=== PATIENT | female | born 1965 | race Caucasian/White ===

== ENCOUNTER 2022-01-30 05:36 | Emergency (ER) | payer OTHER, SELFPAY ==
--- OUTSIDE RECORDS SUMMARY | 2022-01-30 05:42 | XMS REPORT | Continuity of Care Document ---
:1965 Author Organization [facility] t Address [address] [place] [address] Care Team Providers Name Role Phone Andrea ANAND, Lydia Dey Primary Care Physician [phone] DELIA ANDREW Attending Clinician Unavailable Andrea ANAND, Lydia Dey Attending Clinician Daksha Cantu MA Attending Clinician Unavailable Mishel ANAND, Anabella Tran Attending Clinician Margaret Dee MA Attending Clinician Unavailable GIL IZAGUIRRE Attending Clinician Unavailable Jim Buckner MD Attending Clinician Paula Worrell RN Attending Clinician Unavailable Kolby Steward MD Attending Clinician [phone] EDWARD NAVARRO Attending Clinician Unavailable MARLON ROBERT Admitting Clinician Unavailable Payers Payer Name Policy Type Policy Number Effective Date Expiration Date Julien [facility] POS [id number] 2010 00:00:00 OPEN ACCESS Problems Condition Condition Condition Status Onset Resolution Last Treating Co mments Source Name Details Category Date Date Treatment Clinician Date COVID-19 COVID-19 Disease Active 2020-02 Metho di 0 00:00: Hospita 00 l Otalgia Otalgia Disease Active [facility] 2 st 00:00: [facility]ospita 00 l Acute Acute Disease Active [facility] bronchitis bronchitis 03-22 00:00: Hospita 00 l Acute Acute Disease Active Methodi ethmoidal ethmoidal 2-02 st sinusitis sinusitis 00:00: Hosp guy 00 l Conjunctiv Conjunctiv Disease Active M ethodi itis itis 03-22 st 00:00: Hospita 00 l Benign Benign Disease Active [facility] essential essential 03-22 HTN HTN 00:00: Hospita 00 l Cerebrovas Cerebrovas Disease Active M ethodi cular cular 03-22 st disease disease 00:00: Hospita 00 l Constipati Constipati Disease Active M ethodi on on 03-22 st 00:00: Hospita 00 l Cramps of Cramps of Disease Active Met hodi lower lower 03-22 extremity extremity 00:00: Hosp guy 00 l Diverticul Diverticul Disease Active M ethodi itis of itis of 03-22 colon colon 00:00: Hospita 00 l Dizziness Dizziness Disease Active Met hodi 03-22 st 00:00: Hospita 00 l Eczema Eczema Disease Active Methodi 03-22 00:00: Hospita 00 l Gastroesop Gastroesop Disease Active M ethodi hageal hageal 03-22 reflux reflux 00:00: Hospita disease disease 00 l Herpes Herpes Disease Active Method[facility] labialis labialis 03-22 00:00: Hospita 00 l Impaired Impaired Disease Active Metho di fasting fasting 03-22 glucose glucose 00:00: Hospita 00 l Lower Lower Disease Active Methodi abdominal abdominal 03-22 pain pain 00:00: Hospita 00 l Nausea Nausea Disease Active Methodi 03-22 00:00: Hospita 00 l Adiposity Adiposity Disease Active Met hodi 03-22 00:00: Hospita 00 l Otalgia Otalgia Disease Active Methodi 03-22 00:00: Hospita 00 l Pleurisy Pleurisy Disease Active Metho di 03-22 st 00:00: Hospita 00 l Pneumonia Pneumonia Disease Active Met hodi 03-22 st 00:00: Hospita 00 l 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 Right Breast. Scalp Scalp Disease Active Methodi psoriasis psoriasis 03-22 st 00:00: Hospita 00 l Calculus Calculus Disease Active Metho di of kidney of kidney 09-01 st 00:00: Hospita 00 l Atopic Atopic Disease Active [facility] rhinitis rhinitis 06-12 st 00:00: Hospita 00 l Menopausal Menopausal Disease Active M ethodi and and 04-16 perimenopa perimenopa 00:00: Ho spita usal usal 00 l disorder disorder Disorder Disorder Disease Active Metho di involving involving 04-16 st thrombocyt thrombocyt 00:00: Ho spita openia openia 00 l Malignant Malignant Disease Active Overview: Methodi neoplasm neoplasm 04-[address] metastatic metastatic 00:00: g of this Hospita to lung to lung 00 note l might be different from the original. Right Lung. Depression Depression Disease Active M ethodi 04-02 st 00:00: Hospita 00 l HLD HLD Disease Active Methodi (hyperlipi (hyperlipi 04-02 demia) demia) 00:00: Hospita 00 l Reduced Reduced Disease Active Methodi libido libido 04-02 00:00: Hospita 00 l Allergy Allergy Disease Active Methodi 07-18 st 00:00: Hospita 00 l Allergies, Adverse Reactions, Alerts Allergy Allergy Status Severity Reaction(s) Onset Inactive Treating Comm ents Source Name Type Date Date Clinician Penicill Propensi Active Rash Method i ins ty to 03-22 adverse 00:00: Hospita reaction 00 l s to drug Statins- Propensi Active Method i Hmg-Coa ty to 03-22 Reductas adverse 00:00: Hospita e reaction 00 l Inhibito s to rs drug Oxycodon Propensi Active Other (See Panic Me thodi e ty to Comments) 03-[address] adverse 00:00: Hospita reaction 00 l s to drug Penicill Propensi Active Rash Method i ins ty to 03-22 adverse 00:00: Hospita reaction 00 l s to drug Statins- Propensi Active Method i Hmg-Coa ty to 03-22 Reductas adverse 00:00: Hospita e reaction 00 l Inhibito s to rs drug Sulfa Propensi Active Other (See Vomiting Me thodi (Sulfona ty to Comments) 03-22 mide adverse 00:00: Hospita Antibiot reaction 00 l ics) s to drug Family History Family Member Diagnosis Comments Start Date Stop Date Source Natural father Diabetes [facility] Natural father Stroke [facility]aternal grandmother Emphysema [facility] Natural mother Diabetes [facility] Natural mother Heart attack [facility] Paternal grandfather Cancer [facility] Paternal grandmother Cancer [facility] Social History Social Habit Start Date Stop Date Quantity Comments Source History SDOH Yarsanism Alcohol Frequency Hospita l History SDOH Yarsanism Alcohol Std Hospital Drinks History [facility] Alcohol intake 2021-08-23 2021-08-23 Current drinker Metho dist 00:00:00 00:00:00 of [facility] (finding) Alcohol Comment 2020-11-28 2020-11-28 Socially Yarsanism 00:00:00 00:00:00 Hospital Tobacco use and 2017-03-06 2017-03-06 Smokeless tobacco [facility] exposure 00:00:00 00:00:00 non-user Hospital Sex Assigned At [birth year] F Yarsanism 00:00:00 00:00:00 Hospital Smoking Status Start Date Stop Date Source Never smoked tobacco Yarsanism H ospital Medications Ordered Filled Start Stop Current Ordering Indication Dosage Frequency Signature Comments Components Source Medication Medication Date Date Medication? Clinician (SIG) Name Name valsartan-h 2021-02 Yes [id number] 1{tbl} QD Take 1 Methodi ydrochlorot 2-[address] hiazide 00:00: mouth Hospita (DIOVAN-HCT 00 daily. l ) 160-12.5 mg per tablet nebivoloL 2021-02- Yes 20mg QD Take 1 Metho di (BYSTOLIC) 03-16 tablet (20 st 20 mg 00:00: 05:59 mg total) Hospit a tablet 00 :00 by mouth l daily for 90 days. pantoprazol 2021-02- No 40mg QD Take 40 mg Methodi e -15 11-[address] (PROTONIX) 22:27: 00:00 daily. Hosp guy 40 MG EC 27 :00 l tablet pantoprazol 2021-02 Yes 40mg QD Take 1 Meth will e 1-15 tablet (40 st (PROTONIX) 00:00: mg total) Ho spita 40 MG EC 00 by mouth l tablet daily. metFORMIN 2021-02 Yes [id number] TAKE 2 M ethodi XR 1-[address] (GLUCOPHAGE 00:00: MOUTH Hospi ta -XR) 500 mg 00 EVERY DAY l 24 hr WITH tablet BREAKFAST atorvastati 2021-02 Yes [id number] 80mg QD Take 1 Methodi n (LIPITOR) 1-15 tablet (80 st 80 MG 00:00: mg total) Hospita tablet 00 by mouth l nightly. clopidogreL 2021-02 Yes [id number] 75mg QD Take 1 [facility]i (PLAVIX) 75 1-15 tablet (75 st mg tablet 00:00: mg total) Hos cristi 00 by mouth l daily. buPROPion 2021-02- Yes [id number] 450mg QD Take 3 [facility] XL -15 11-[address] (Wellbutrin 00:00: 05:59 (450 mg Ho spita XL) 150 MG 00 :00 total) by l 24 hr mouth tablet daily. metroNIDAZO 2021-02- Yes [id number] 1{pump} QD Apply 1 [facility] LE 1 % gel 15 02-[address] with pump 00:00: 05:59 topically Ho spita 00 :00 daily for l 90 days. vilazodone 2021-02- Yes 20mg QD Take 1 Meth will (VIIBRYD) -15 12-16 tablet (20 st 20 mg 00:00: 05:59 mg total) Hospit a tablet 00 :00 by mouth l daily for 30 days. valsartan-h 2021-02- No [id number] 1{tbl} QD Take 1 [facility]i ydrochlorot -15 12-[address] hiazide 00:00: 00:00 mouth Hospita (DIOVAN-HCT 00 :00 daily. l ) 160-12.5 mg per tablet vilazodone 2021-02- No 20mg QD Take 1 Meth will (VIIBRYD) 0-19 11-15 tablet (20 st 20 mg 00:00: 00:00 mg total) Hospit a tablet 00 :00 by mouth l daily for 30 days. ZINC ORAL 2021-02 No Take by Meth will 0-16 10-[address] 23:03: 00:00 Hospita 38 :00 l cholecalcif 2021-02 Yes [id number] Take 2,000 Methodi surya, 0-[address] vitamin D3, 14:32: mouth. Hosp guy (VITAMIN 21 l D3) 2,000 unit tablet acetaminoph 2021-02 Yes 500mg Take 500 M ethodi en 0-[address] (TYLENOL) 14:32: mouth as Hosp guy 500 MG 21 needed for l tablet mild pain. metroNIDAZO 2021-02- No [id number] 1{pump} QD Apply 1 [facility] LE 1 % gel 0 11-[address] with pump 00:00: 00:00 topically Ho spita 00 :00 daily for l 90 days. atorvastati 2021- No [id number] 80mg QD Take 1 Methodi n (LIPITOR) 9- 11-15 tablet (80 s t 80 MG 00:00: 00:00 mg total) Hospit a tablet 00 :00 by mouth l nightly. isosorbide 2021- No [id number] TAKE 1 [facility] mononitrate 8-20 10-16 TABLET(30 st (IMDUR) 30 00:00: 00:00 MG) BY Hosp guy MG 24 hr 00 :00 MOUTH l tablet DAILY valsartan-h 2021- No [id number] 1{tbl} QD Take 1 Methodi ydrochlorot 8 11-[address] hiazide 00:00: 00:00 mouth Hospita (DIOVAN-HCT 00 :00 daily. l ) 160-12.5 mg per tablet nebivoloL 2021- No [id number] 20mg QD Take 1 Me thodi (Bystolic) 8- 10-16 tablet (20 st 20 mg 00:00: 00:00 mg total) Hospit a tablet 00 :00 by mouth l daily. metFORMIN 2021- No [id number] TAKE 2 [facility]i XR 09-12-[address] (GLUCOPHAGE 00:00: 00:00 MOUTH Hosp guy -XR) 500 mg 00 :00 EVERY DAY l 24 hr WITH tablet BREAKFAST albuterol 2022- No 2{puff} Q6H Inhale 2 [facility] (PROAIR 08-[address] HFA) 90 00:00: 04:59 every 6 Hospit a mcg/actuati 00 :00 (six) l on inhaler hours as needed for wheezing or shortness of breath. benzonatate 2021- No 100mg Q.[id number] Take 1 [facility]i (Tessalon 08-[id number] Perl) 100 00:00: 04:59 3D (100 mg Ho spita MG capsule 00 :00 total) by l mouth 3 (three) times a day as needed for cough for up to 7 days. nirmatrelvi 2021- No 3{tbl} Q.5D Take 3 M ethodi r-ritonavir 08-22 tablets by s t (Paxlovid, 00:00: 04:59 mouth 2 Hos cristi EUA,) 150 00 :00 (two) l mg x 2- 100 times a mg per Dose day for 5 days. valsartan-h 2021- No [id number] 1{tbl} QD Take 1 Methodi ydrochlorot 07-[address] hiazide 00:00: 00:00 mouth Hospita (DIOVAN-HCT 00 :00 daily. l ) 160-12.5 mg per tablet pantoprazol Yes [id number] 40mg QD Take 1 Methodi e 07-26 tablet (40 st (Protonix) 00:00: mg total) Ho spita 40 MG EC 00 by mouth l tablet daily. clopidogreL 2021- No [id number] 75mg QD Take 1 [facility]i (PLAVIX) 75 07-26 tablet (75 s t mg tablet 00:00: 00:00 mg total) Ho spita 00 :00 by mouth l daily. buPROPion 2021- No [id number] 450mg QD Take 3 Methodi XL 6-08 11-[address] (Wellbutrin 00:00: 00:00 (450 mg Ho spita XL) 150 MG 00 :00 total) by l 24 hr mouth tablet daily. vortioxetin 2021- No [id number] 20mg QD Take 1 Methodi e 07-26 10-19 tablet (20 st (Trintellix 00:00: 00:00 mg total) Hospita ) 20 mg 00 :00 by mouth l tablet daily. atorvastati 2021- No [id number] 80mg QD Take 1 Methodi n (LIPITOR) 07-26 09-20 tablet (80 s t 80 MG 00:00: 00:00 mg total) Hospit a tablet 00 :00 by mouth l nightly. isosorbide 2021- No [id number] 30mg QD Take 1 [facility]i mononitrate 07-26 08-20 tablet (30 s t (IMDUR) 30 00:00: 00:00 mg total) H ospita MG 24 hr 00 :00 by mouth l tablet daily. nebivoloL 2021- No [id number] 20mg QD Take 1 Me thodi (Bystolic) 07-26-08 tablet (20 st 20 mg 00:00: 00:00 mg total) Hospit a tablet 00 :00 by mouth l daily. metFORMIN 2021- No [id number] TAKE 2 [facility]i XR 07-26 07-[address] (GLUCOPHAGE 00:00: 00:00 MOUTH Hosp guy -XR) 500 mg 00 :00 EVERY DAY l 24 hr WITH tablet BREAKFAST clopidogreL 2021- No [id number] TAKE 1 [facility]i (PLAVIX) 75 07-23 TABLET(75 st mg tablet 00:00: 00:00 MG) BY Hospi ta 00 :00 MOUTH l DAILY isosorbide 2021- No 30mg Take 30 mg Methodi mononitrate 07-[address] (IMDUR) 30 00:00: 00:00 Hospit a MG 24 hr 00 :00 l tablet nitroglycer Yes .4mg Place 0.4 M ethodi in 5-[address] (NITROSTAT) 00:00: the Hospit a 0.4 MG SL 00 tongue. l tablet atorvastati 2021- No Metho di n (LIPITOR) 07-13 st 80 MG 00:00: 00:00 Hospita tablet 00 :00 l valsartan-h 2021- No [id number] 1{tbl} QD Take 1 Methodi ydrochlorot 05-[address] hiazide 00:00: 00:00 mouth Hospita (DIOVAN-HCT 00 :00 daily. l ) 160-12.5 mg per tablet vortioxetin 2021- No [id number] 20mg QD Take 1 Methodi e 05-08 tablet (20 st (Trintellix 00:00: 00:00 mg total) Hospita ) 20 mg 00 :00 by mouth l tablet daily. vortioxetin 2021- No [id number] 20mg QD Take 1 Methodi e 05-08 tablet (20 st (Trintellix 00:00: 00:00 mg total) Hospita ) 20 mg 00 :00 by mouth l tablet daily. simvastatin 2021- No [id number] 20mg QD Take 1 Methodi (ZOCOR) 20 05-08 tablet (20 st mg tablet 00:00: 00:00 mg total) Ho spita 00 :00 by mouth l nightly. nebivoloL 2021- No [id number] 20mg QD Take 1 Me thodi (Bystolic) 05-08 tablet (20 st 20 mg 00:00: 00:00 mg total) Hospit a tablet 00 :00 by mouth l daily. metFORMIN 2021- No [id number] TAKE 2 [facility]i XR 05-[address] (GLUCOPHAGE 00:00: 00:00 MOUTH Hosp guy -XR) 500 mg 00 :00 EVERY DAY l 24 hr WITH tablet BREAKFAST buPROPion 2021- No [id number] 450mg QD Take 3 Methodi XL 05-[address] (Wellbutrin 00:00: 00:00 (450 mg Ho spita XL) 150 MG 00 :00 total) by l 24 hr mouth tablet daily. clopidogreL 2021- No [id number] 75mg QD Take 1 [facility]i (PLAVIX) 75 3-21 06-05 tablet (75 s t mg tablet 00:00: 00:00 mg total) Ho spita 00 :00 by mouth l daily. simvastatin 2021- No [id number] 20mg QD Take 1 [facility]i (ZOCOR) 20 3-17 03-21 tablet (20 st mg tablet 00:00: 00:00 mg total) Ho spita 00 :00 by mouth l nightly. famotidine 2020-02 Yes [id number] 20mg Q.5D Take 1 [facility]i (PEPCID) 20 - tablet (20 st MG tablet 00:00: mg total) Hos cristi 00 by mouth 2 l (two) times a day. loratadine 2020-02 Yes 10mg QD Take 1 Metho di (CLARITIN) 03-18 tablet (10 st 10 mg 00:00: mg total) Hospita tablet 00 by mouth l daily. vortioxetin 2020-02 Yes [id number] 20mg QD Take 1 Methodi e 03-18 tablet (20 st (Trintellix 00:00: mg total) H ospita ) 20 mg 00 by mouth l tablet daily. valsartan-h 2020-02 Yes [id number] 1{tbl} QD Take 1 Methodi ydrochlorot 03-[address] hiazide 00:00: mouth Hospita (DIOVAN-HCT 00 daily. l ) 160-12.5 mg per tablet simvastatin 2020-02 Yes [id number] 20mg QD Take 1 Methodi (ZOCOR) 20 03-18 tablet (20 st mg tablet 00:00: mg total) Hos cristi 00 by mouth l nightly. nebivoloL 2020-02 Yes [id number] 20mg QD Take 1 Met hodi (Bystolic) 03-18 tablet (20 st 20 mg 00:00: mg total) Hospita tablet 00 by mouth l daily. metFORMIN 2020-02 Yes [id number] TAKE 2 M ethodi XR -[address] (GLUCOPHAGE 00:00: MOUTH Hospi ta -XR) 500 mg 00 EVERY DAY l 24 hr WITH tablet BREAKFAST clopidogreL 2020-02 Yes [id number] 75mg QD Take 1 [facility]i (PLAVIX) 75 -29 tablet (75 st mg tablet 00:00: mg total) Hos cristi 00 by mouth l daily. buPROPion 2020-02 Yes [id number] TAKE 2 Me thodi XL 03-[address] (WELLBUTRIN 00:00: MOUTH Hospi ta XL) 150 MG 00 EVERY DAY l 24 hr tablet famotidine 2020-02 Yes [id number] 20mg Q.5D Take 1 Methodi (PEPCID) 20 03-18 tablet (20 st MG tablet 00:00: mg total) Hos cristi 00 by mouth 2 l (two) times a day. loratadine 2020-02 Yes 10mg QD Take 1 Metho di (CLARITIN) 03-18 tablet (10 st 10 mg 00:00: mg total) Hospita tablet 00 by mouth l daily. vortioxetin 2020-02- No [id number] 20mg QD Take 1 Methodi e 03-18 tablet (20 st (Trintellix 00:00: 00:00 mg total) Hospita ) 20 mg 00 :00 by mouth l tablet daily. valsartan-h 2020-02- No [id number] 1{tbl} QD Take 1 Methodi ydrochlorot 03-[address] hiazide 00:00: 00:00 mouth Hospita (DIOVAN-HCT 00 :00 daily. l ) 160-12.5 mg per tablet nebivoloL 2020-02- No [id number] 20mg QD Take 1 Me thodi (Bystolic) 03-18 tablet (20 st 20 mg 00:00: 00:00 mg total) Hospit a tablet 00 :00 by mouth l daily. metFORMIN 2020-02- No [id number] TAKE 2 [facility]i XR 03-[address] (GLUCOPHAGE 00:00: 00:00 MOUTH Hosp guy -XR) 500 mg 00 :00 EVERY DAY l 24 hr WITH tablet BREAKFAST clopidogreL 2020-02- No [id number] 75mg QD Take 1 [facility]i (PLAVIX) 75 03-18 tablet (75 s t mg tablet 00:00: 00:00 mg total) Ho spita 00 :00 by mouth l daily. buPROPion 2020-02- No [id number] TAKE 2 M ethodi XL 1-29 03-[address] (WELLBUTRIN 00:00: 00:00 MOUTH Hosp guy XL) 150 MG 00 :00 EVERY DAY l 24 hr tablet simvastatin 2020-02 No [id number] 20mg QD Take 1 Methodi (ZOCOR) 20 03-18 03-16 tablet (20 st mg tablet 00:00: 00:00 mg total) Ho spita 00 :00 by mouth l nightly. ZINC ORAL 2020-02 Yes Take by Metho di 02-[address] 11:06: Hospita 33 l cholecalcif 2020-02 Yes 2000mg Take 2,000 Methodi surya, 1-[address] vitamin D3, 11:06: mouth. Hosp guy (VITAMIN 19 l D3) 2,000 unit tablet valsartan-h 2020-02- No [id number] 1{tbl} QD Take 1 Methodi ydrochlorot 02-[address] hiazide 00:00: 00:00 mouth Hospita (DIOVAN-HCT 00 :00 daily. l ) 160-12.5 mg per tablet simvastatin 2020-02- No [id number] 20mg QD Take 1 [facility]i (ZOCOR) 20 02-25 tablet (20 st mg tablet 00:00: 00:00 mg total) Ho spita 00 :00 by mouth l nightly. nebivoloL 2020-02- No [id number] 20mg QD Take 1 Me thodi (Bystolic) 02-25 tablet (20 st 20 mg 00:00: 00:00 mg total) Hospit a tablet 00 :00 by mouth l daily. metFORMIN 2020-02- No [id number] TAKE 2 [facility]i XR 02-[address] (GLUCOPHAGE 00:00: 00:00 MOUTH Hosp guy -XR) 500 mg 00 :00 EVERY DAY l 24 hr WITH tablet BREAKFAST clopidogreL 2020-02- No [id number] 75mg QD Take 1 Methodi (PLAVIX) 75 02-25 tablet (75 s t mg tablet 00:00: 00:00 mg total) Ho spita 00 :00 by mouth l daily. buPROPion 2020-02- No [id number] TAKE 2 M ethodi XL 1-08 11-[address] (WELLBUTRIN 00:00: 00:00 MOUTH Hosp guy XL) 150 MG 00 :00 EVERY DAY l 24 hr tablet Trintellix 2020-02 Yes [id number] TAKE 1 M ethodi 20 mg 0-26 TABLET(20 st tablet 00:00: MG) BY Hospita 00 MOUTH l DAILY Trintellix 2020-02- No [id number] TAKE 1 Methodi 20 mg 0-26 03-21 TABLET(20 st tablet 00:00: 00:00 MG) BY Hospita 00 :00 MOUTH l DAILY Trintellix 2020-02- No [id number] TAKE 1 Methodi 20 mg 0-26 -29 TABLET(20 st tablet 00:00: 00:00 MG) BY Hospita 00 :00 MOUTH l DAILY codeine-gua 2020-02- No 5mL Q.[id number] Take 5 mL Methodi ifenesin 0- 10- [id number] by mouth 3 st (GUAIFENESI 00:00: 04:59 3D (three) Ho spita N AC) 00 :00 times a l 10-100 mg/5 day as mL liquid needed for cough for up to 7 days .cough. valsartan-h 2020- No [id number] 1{tbl} QD Take 1 Methodi ydrochlorot 10-[address] hiazide 00:00: 00:00 mouth Hospita (DIOVAN-HCT 00 :00 daily. l ) 160-12.5 mg per tablet simvastatin 2020- No [id number] 20mg QD Take 1 Methodi (ZOCOR) 20 -01 01- tablet (20 st mg tablet 00:00: 00:00 mg total) Ho spita 00 :00 by mouth l nightly. Trintellix 2020- No [id number] TAKE 1 Methodi 20 mg 8- 10- TABLET(20 st tablet 00:00: 00:00 MG) BY Hospita 00 :00 MOUTH l DAILY famotidine 2020- No [id number] 20mg Q.5D Take 1 Methodi (PEPCID) 20 7-27 - tablet (20 s t MG tablet 00:00: 00:00 mg total) Ho spita 00 :00 by mouth 2 l (two) times a day. loratadine 2020- No 10mg QD Take 1 Meth will (CLARITIN) 09-13 tablet (10 st 10 mg 00:00: 00:00 mg total) Hospit a tablet 00 :00 by mouth l daily. nebivoloL 2020- No [id number] 20mg QD Take 1 Me thodi (Bystolic) 09-13 tablet (20 st 20 mg 00:00: 00:00 mg total) Hospit a tablet 00 :00 by mouth l daily. metFORMIN 2020- No [id number] TAKE 2 [facility] XR 09-[address] (GLUCOPHAGE 00:00: 00:00 MOUTH Hosp guy -XR) 500 mg 00 :00 EVERY DAY l 24 hr WITH tablet BREAKFAST clopidogreL 2020- No [id number] 75mg QD Take 1 [facility] (PLAVIX) 75 09-13 tablet (75 s t mg tablet 00:00: 00:00 mg total) Ho spita 00 :00 by mouth l daily. buPROPion 2020- No [id number] TAKE 2 M ethodi XL 09-[address] (WELLBUTRIN 00:00: 00:00 MOUTH Hosp guy XL) 150 MG 00 :00 EVERY DAY l 24 hr tablet valsartan-h 2020- No [id number] 1{tbl} QD Take 1 Methodi ydrochlorot 09-[address] hiazide 00:00: 00:00 mouth Hospita (DIOVAN-HCT 00 :00 daily. l ) 160-12.5 mg per tablet simvastatin 2020- No [id number] 20mg QD Take 1 [facility]i (ZOCOR) 20 09-13 tablet (20 st mg tablet 00:00: 00:00 mg total) Ho spita 00 :00 by mouth l nightly. vortioxetin 2020- No [id number] 20mg QD Take 1 Methodi e 09-13 tablet (20 st (Trintellix 00:00: 00:00 mg total) Hospita ) 20 mg 00 :00 by mouth l tablet daily. simvastatin No [id number] 20mg QD Take 1 [facility]i (ZOCOR) 20 08-30 tablet (20 st mg tablet 00:00: 00:00 mg total) Ho spita 00 :00 by mouth l nightly. valsartan-h 2020- No [id number] 1{tbl} QD Take 1 Methodi ydrochlorot 08-[address] hiazide 00:00: 00:00 mouth Hospita (DIOVAN-HCT 00 :00 daily. l ) 160-12.5 mg per tablet vortioxetin 2020- No [id number] 20mg QD Take 1 Methodi e 08-30 tablet (20 st (Trintellix 00:00: 00:00 mg total) Hospita ) 20 mg 00 :00 by mouth l tablet daily. nebivoloL 2020- No [id number] 20mg QD Take 1 Me thodi (Bystolic) 08-30 tablet (20 st 20 mg 00:00: 00:00 mg total) Hospit a tablet 00 :00 by mouth l daily. clopidogreL 2020- No [id number] 75mg QD Take 1 [facility]i (PLAVIX) 75 08-30 tablet (75 s t mg tablet 00:00: 00:00 mg total) Ho spita 00 :00 by mouth l daily. metFORMIN 2020- No TAKE 2 Metho di XR 05-[address] (GLUCOPHAGE 00:00: 00:00 MOUTH Hosp guy -XR) 500 mg 00 :00 EVERY DAY l 24 hr WITH tablet BREAKFAST simvastatin 2020- No [id number] 20mg QD Take 1 [facility] (ZOCOR) 20 05-29 tablet (20 st mg tablet 00:00: 00:00 mg total) Ho spita 00 :00 by mouth l nightly. buPROPion 2020- No [id number] TAKE 2 M ethodi XL 05-[address] (WELLBUTRIN 00:00: 00:00 MOUTH Hosp guy XL) 150 MG 00 :00 EVERY DAY l 24 hr tablet valsartan-h 2020- No [id number] 1{tbl} QD Take 1 Methodi ydrochlorot 05-[address] hiazide 00:00: 00:00 mouth Hospita (DIOVAN-HCT 00 :00 daily. l ) 160-12.5 mg per tablet nebivoloL 2020- No [id number] 20mg QD Take 1 Me thodi (Bystolic) 05-24 tablet (20 st 20 mg 00:00: 00:00 mg total) Hospit a tablet 00 :00 by mouth l daily. clopidogreL 2020- No [id number] 75mg QD Take 1 [facility]i (PLAVIX) 75 05-24 tablet (75 s t mg tablet 00:00: 00:00 mg total) Ho spita 00 :00 by mouth l daily. vortioxetin 2020- No [id number] 20mg QD Take 1 Methodi e 05-24 tablet (20 st (Trintellix 00:00: 00:00 mg total) Hospita ) 20 mg 00 :00 by mouth l tablet daily. vortioxetin 2020- No [id number] 20mg QD Take 1 Methodi e 05-24 tablet (20 st (Trintellix 00:00: 00:00 mg total) Hospita ) 20 mg 00 :00 by mouth l tablet daily. simvastatin 2020- No [id number] 20mg QD Take 1 [facility] (ZOCOR) 20 03-02 tablet (20 st mg tablet 00:00: 00:00 mg total) Ho spita 00 :00 by mouth l nightly. metFORMIN 2020- No TAKE 2 Metho di XR 03-[address] (GLUCOPHAGE 00:00: 00:00 MOUTH Hosp guy -XR) 500 mg 00 :00 EVERY DAY l 24 hr WITH tablet BREAKFAST vortioxetin 2020- No [id number] 20mg QD Take 1 Methodi e 03-02 tablet (20 st (Trintellix 00:00: 00:00 mg total) Hospita ) 20 mg 00 :00 by mouth l tablet daily. valsartan-h 2020- No [id number] 1{tbl} QD Take 1 Methodi ydrochlorot 03-[address] hiazide 00:00: 00:00 mouth Hospita (DIOVAN-HCT 00 :00 daily. l ) 160-12.5 mg per tablet nebivoloL 2020- No [id number] 20mg QD Take 1 Me thodi (Bystolic) 03-02 tablet (20 st 20 mg 00:00: 00:00 mg total) Hospit a tablet 00 :00 by mouth l daily. clopidogreL 2020- No [id number] 75mg QD Take 1 [facility] (PLAVIX) 75 03-02 tablet (75 s t mg tablet 00:00: 00:00 mg total) Ho spita 00 :00 by mouth l daily. buPROPion 2020- No [id number] TAKE 2 M ethodi XL 03-[address] (WELLBUTRIN 00:00: 00:00 MOUTH Hosp guy XL) 150 MG 00 :00 EVERY DAY l 24 hr tablet famotidine 2020- No [id number] 20mg Q.5D Take 1 [facility]i (PEPCID) 20 07-12-27 tablet (20 s t MG tablet 00:00: 00:00 mg total) [facility] 00 :00 by mouth 2 l (two) times a day. gabapentin 2020- No [id number] Take 1 [facility] (NEURONTIN) 07-12-[address] 300 mg 00:00: 00:00 twice a [facility]osp[facility] capsule 00 :00 day and 2 l capsules at bedtime (total of 4 capsules daily) loratadine No 10mg QD Take 1 Meth will (CLARITIN) 07-12-27 tablet (10 st 10 mg 00:00: 00:00 mg total) Hospit [facility] tablet 00 :00 by mouth l daily. albuterol 2020- No [id number] 2{puff} Q6H Inhale 2 Methodi (PROAIR 3-27 03-[address] HFA) 90 00:00: 04:59 every 6 Hospit a mcg/actuati 00 :00 (six) l on inhaler hours as needed for wheezing. Immunizations Ordered Immunization Filled Immunization Date Status Commen ts Source Name Name FLUBLOK QUAD PF 2021-11-23 Completed [facility] 00:00:00 Hospital PFIZER >12 YR 2021-11-23 Completed [facility] COVID-19 MRNA 00:00:00 Hospital BIVALENT VACCINATION PFIZER COVID-19 MRNA 2021-03-03 Completed Meth odist VACCINATION 00:00:00 [facility] FLUBLOK QUAD PF 2020-12-26 Completed [facility] 00:00:00 Hospital FLUBLOK QUAD PF 2020-12-26 Completed [facility] 00:00:00 Hospital PFIZER COVID-19 MRNA 2020-05-12 Completed Meth odist VACCINATION 00:00:00 Hospital PFIZER COVID-19 MRNA 2020-05-12 Completed Meth odist VACCINATION 00:00:00 [facility] PFIZER COVID-19 MRNA 2020-04-21 Completed Meth odist VACCINATION 00:00:00 [facility] PFIZER COVID-19 MRNA 2020-04-21 Completed Meth odist VACCINATION 00:00:00 [facility] FLUCELVAX QUAD PF 2019-11-[address] 00:00:00 [facility] FLUCELVAX QUAD PF 2019-11-[address] 00:00:00 [facility] FLUZONE QUAD PF 2018-11-11 Completed [facility] 00:00:00 Hospital FLUZONE QUAD PF 2018-11-11 Completed [facility] 00:00:00 Hospital FLUZONE QUAD PF 2017-11-18 Completed [facility] 00:00:00 [facility] FLUZONE QUAD PF 2017-11-18 Completed [facility] 00:00:00 [facility] FLUZONE QUAD 2016-10-23 Completed [facility] INTRADERMAL PF 00:00:00 Hospital FLUZONE QUAD 2016-10-23 Completed [facility] INTRADERMAL PF 00:00:00 Hospital Influenza (IM) 2015-10-27 Completed [facility] Preservative Free 00:00:00 Hospita l Influenza (IM) 2015-10-27 Completed [facility] Preservative Free 00:00:00 Hospita l Influenza Trivalent 2014-11-22 Completed Metho dist 00:00:00 Hospital Influenza Trivalent 2014-11-22 Completed Metho dist 00:00:00 Hospital Influenza (IM) 2013-12-21 Completed [facility] Preservative Free 00:00:00 Hospita l Influenza (IM) 2013-12-21 Completed [facility] Preservative Free 00:00:00 Hospita l Influenza Split 2012-02-29 Completed [facility] 00:00:00 Hospital Influenza Split 2012-02-29 Completed [facility] 00:00:00 Hospital Vital Signs Vital Name Observation Time Observation Value Comments Source Systolic blood 2021-11-23 19:26:00 124 mm[Hg] [facility] pressure Diastolic blood 2021-11-23 19:26:00 84 mm[Hg] [facility] pressure Heart rate 2021-11-23 19:26:00 69 /min [facility] Body temperature 2021-11-23 19:26:00 36.11 Radha [facility] Body height 2021-11-23 19:26:00 157.5 cm [facility] Body weight 2021-11-23 19:26:00 97.977 kg [facility] BMI 2021-11-23 19:26:00 39.51 kg/m2 [facility] Oxygen saturation in 2021-11-23 19:26:00 97 /min [facility] Arterial blood by Pulse oximetry Systolic blood 2020-12-26 17:05:00 130 mm[Hg] [facility] pressure Diastolic blood 2020-12-26 17:05:00 86 mm[Hg] [facility] pressure Heart rate 2020-12-26 17:05:00 74 /min [facility] Body temperature 2020-12-26 17:05:00 36 Radha [facility] Body height 2020-12-26 17:05:00 157.5 cm [facility] Body weight 2020-12-26 17:05:00 102.513 kg [facility] BMI 2020-12-26 17:05:00 41.34 kg/m2 [facility] Oxygen saturation in 2020-12-26 17:05:00 98 /min [facility] Arterial blood by Pulse oximetry Respiratory rate 2020-11-28 18:28:08 16 /min [facility] Procedures Procedure Date / Time Performing Clinician Source Performed CBC WITH PLATELET AND 2021-11-23 20:47:00 Lydia Mendez Caro [facility] DIFFERENTIAL COMPREHENSIVE METABOLIC 2021-11-23 20:47:00 Lydia Mendez [facility] PANEL LIPID PANEL 2021-11-23 20:47:00 Lydia Mendez [facility] HEMOGLOBIN A1C 2021-11-23 20:47:00 [facility] 2021-11-23 20:47:00 Mendez, [facility] HORMONE T4, FREE 2021-11-23 20:47:00 Mendez, [facility] T3, FREE 2021-11-23 20:47:00 Mendez, [facility] VITAMIN D 25 HYDROXY 2021-11-23 20:47:00 Mendez, Lydia [place] [facility] LEVEL VITAMIN B12 AND FOLATE 2021-11-23 20:47:00 Mendez, Lydia [facility] URINALYSIS SCREEN AND 2021-11-23 20:47:00 Mendez, Lydia [facility] [place] MICROSCOPY, WITH REFLEX TO CULTURE US CAROTID DUPLEX 2021-08-31 21:07:15 Mendez, Lydia [facility] BILATERAL XR KNEE 3 VW RIGHT 2021-08-31 20:11:52 Mendez, [facility] CBC WITH PLATELET AND 2021-05-08 16:37:00 Mendez, [facility] DIFFERENTIAL COMPREHENSIVE METABOLIC 2021-05-08 16:37:00 [facility] PANEL LIPID PANEL 2021-05-08 16:37:00 Mendez, [facility] HEMOGLOBIN A1C 2021-05-08 16:37:00 Mendez, [facility] THYROID STIMULATING 2021-05-08 16:37:00 Mendez, [facility] HORMONE T3, FREE 2021-05-08 16:37:00 Mendez, [facility] T4, FREE 2021-05-08 16:37:00 Mendez, [facility] VITAMIN D 25 HYDROXY 2021-05-08 16:37:00 Mendez, Lydia [place] [facility] LEVEL VITAMIN B12 AND FOLATE 2021-05-08 16:37:00 Mendez, Lydia [facility] URINALYSIS, COMPLETE, 2021-05-08 16:37:00 Mendez, [facility] WITH REFLEX TO CULTURE CBC WITH PLATELET AND 2020-12-26 18:09:00 Mendez, Lydia [facility] [place] DIFFERENTIAL COMPREHENSIVE METABOLIC 2020-12-26 18:09:00 MendezLydia [facility] PANEL LIPID PANEL 2020-12-26 18:09:[facility] HEMOGLOBIN A1C 2020-12-26 18:09[facility] 25 HYDROXY 2020-12-26 18:09:00 Lydia Mendez [place] [facility] LEVEL VITAMIN B12 AND FOLATE 2020-12-26 18:09:00 Mendez, Lydia [facility] URINALYSIS, COMPLETE, 2020-12-26 18:09:[address] [facility] [place] WITH REFLEX TO CULTURE THINPREP TIS PAP AND HR 2020-09-13 15:01:00 [facility] HPV DNA REFLEX GENOTYPES 16,18 CBC WITH PLATELET AND 2020-09-13 14:45:[address] [facility] [place] DIFFERENTIAL COMPREHENSIVE METABOLIC 2020-09-13 14:45:[facility]IP[facility]EL 2020-09-13 14:45:00 [facility]C 2020-09-13 14:45:00 [facility], COMPLETE, 2020-09-13 14:45:[address] [facility] [place] WITH REFLEX TO CULTURE VITAMIN D 25 HYDROXY 2020-09-13 14:45:00 Lydia Mendez [place] [facility] LEVEL VITAMIN B12 AND FOLATE 2020-09-13 14:45:00 [facility] CBC WITH PLATELET AND 2020-05-24 16:44[facility] [facility] [place] DIFFERENTIAL COMPREHENSIVE METABOLIC 2020-05-24 16:44:00 [facility]IPID PANEL 2020-05-24 16:44:00 [facility] HEMOGLOBIN A1C 2020-05-24 16:44:00 [facility] D 25 HYDROXY 2020-05-24 16:44:00 MendezLydia [place] [facility] LEVEL VITAMIN B12 AND FOLATE 2020-05-24 16:44:00 Lydia Mendez Caro [facility] URINALYSIS, COMPLETE, 2020-05-24 16:44:00 Lydia Mendez Caro [facility] WITH REFLEX TO CULTURE Plan of Care Planned Activity Planned Date Details Comments Source Future Scheduled 2022-01-29 Pneumococcal Vaccine: [facility] Test 19:19:54 Pediatrics (0 to 5 Years) and At-Risk Patients (6 to 64 Years) (1 - PCV) [code = Pneumococcal Vaccine: Pediatrics (0 to 5 Years) and At-Risk Patients (6 to 64 Years) (1 - PCV)] Future Scheduled 2022-01-29 Hepatitis C screening [facility] Test 19:19:54 (procedure) [code = 370931322] Future Scheduled 2022-01-29 COLONOSCOPY SCREENING [facility] Test 19:19:54 [code = COLONOSCOPY SCREENING] Future Scheduled 2022-01-29 BREAST CANCER [facility] Test 19:19:54 SCREENING [code = BREAST CANCER SCREENING] Future Scheduled 2022-01-29 SHINGLES VACCINES (1 Met [facility] Test 19:19:54 of 2) [code = SHINGLES VACCINES (1 of 2)] Future Scheduled 2022-01-29 Screening for [facility] Test 19:19:54 malignant neoplasm of cervix (procedure) [code = 933973739] Future Scheduled 2021-03-22 Hepatitis C screening [facility] Test 00:19:04 (procedure) [code = 520274850] Future Scheduled 2021-03-22 Screening for [facility] Test 00:19:04 malignant neoplasm of cervix (procedure) [code = 113156223] Future Scheduled 2021-03-22 COLONOSCOPY SCREENING [facility] Test 00:19:04 [code = COLONOSCOPY SCREENING] Future Scheduled 2021-03-22 SHINGLES VACCINES (#1) [facility] Test 00:19:04 [code = SHINGLES VACCINES (#1)] Future Scheduled 2021-03-22 BREAST CANCER [facility] Test 00:19:04 SCREENING [code = BREAST CANCER SCREENING] Future Scheduled 2021-03-22 COVID-19 VACCINE (3 - [facility] Test 00:19:04 Booster for Pfizer series) [code = COVID-19 VACCINE (3 - Booster for Pfizer series)] Encounters Start End Encounter Admission Attending Care Care Encounter Source Date/Time Date/Time Type Type Clinicians Facility Department ID 2021-07-10 Inpatient PAU ANDREW MDA [facility] [id number] 09:28:00 DELIA Alarcon alyson 2022-01-29 2022-01-29 Orders Mendez, 1.2.840.1 [id number] Methodi 00:00:00 00:00:00 Only Lydia [address]645.1.[address]y 3.430.2.7 Hospit a .3.205564 l .8 2022-01-14 2022-01-14 Orders Mendez, 1.2.840.1 [id number] 8409 Methodi 00:00:00 00:00:00 Only Lydia 95375.1.[address]y 3.430.2.7 Hospit a .3.292454 l .8 2022-01-13 2022-01-13 Refill Mendez, 1.2.840.1 [id number] 2615 Methodi 00:00:00 00:00:[address] 3.430.2.7 Hospit a .3.750902 l .8 2022-01-05 2022-01-05 Refill Mendez, 1.2.840.1 [id number] 3251 Methodi 00:00:00 00:00:[address] 3.430.2.7 Hospit a .3.552665 l .8 2022-01-02 2022-01-02 Orders Mendez, 1.2.840.1 [id number] 1817 Methodi 00:00:00 00:00:00 Only Lydia 02875.1.[address]y 3.430.2.7 Hospit a .3.073706 l .8 2021-12-06 2021-12-06 Refill Mendez, 1.2.840.1 [id number] 4638 Methodi 00:00:00 00:00:[address] 3.430.2.7 Hospit a .3.606843 l .8 2021-12-06 2021-12-06 Refill Mendez, 1.2.840.1 [id number] 7749 Methodi 00:00:00 00:00:[address] 3.430.2.7 Hospit a .3.075105 l .8 2021-12-06 2021-12-06 Refill Mendez, 1.2.840.1 [id number] 0920 Methodi 00:00:00 00:00:[address]y 3.430.2.7 Hospit a .3.584821 l .8 2021-12-06 2021-12-06 Orders Mendez, 1.2.840.1 [id number] 4756 Methodi 00:00:00 00:00:00 Only Lydia 18627.1.[address]y 3.430.2.7 Hospit a .3.117577 l .8 2021-12-05 2021-12-05 Refill Mendez, 1.2.840.1 [id number] 1097 Methodi 00:00:00 00:00:[address] 3.430.2.7 Hospit a .3.767332 l .8 2021-12-04 2021-12-04 Telephone Veles, 1.2.840.1 [id number] Methodi 00:00:00 00:00:[address] 3.430.2.7 Hospit a .3.367085 l .8 2021-12-04 2021-12-04 Refill Mendez, 1.2.840.1 [id number] 1801 Methodi 00:00:00 00:00:[address]y 3.430.2.7 Hospit a .3.464038 l .8 2021-12-03 2021-12-03 Refill Mendez, 1.2.840.1 [id number] 9646 Methodi 00:00:00 00:00:[address]y 3.430.2.7 Hospit a .3.325093 l .8 2021-11-23 2021-11-23 Office Mendez, 1.2.840.1 [id number] 9550 Methodi 14:15:00 15:50:21 Visit Lydia 12330.1.[address]y 3.430.2.7 Hospit a .3.547428 l .8 2021-11-23 2021-11-23 Outpatient MENDEZ, [facility] [id number] [address] [place] 00:00:00 00:00:[address] 2021-11-22 2021-11-22 Travel 1.2.840.1 1.2.927.996 8136 [id number] Methodi 00:00:00 00:00:[address] 3.430.2.7 0.2.7.3.698 Ho spita .3.300257 084.8 l .8 2021-11-07 2021-11-07 Refill Mendez, 1.2.840.1 [id number] 6682 Methodi 00:00:00 00:00:[address]y 3.430.2.7 Hospit a .3.978408 l .8 2021-11-06 2021-11-06 Refill Mendez, 1.2.840.1 [id number] 5180 Methodi 00:00:00 00:00:[address]y 3.430.2.7 Hospit a .3.535328 l .8 2021-10-07 2021-10-07 Refill Mendez, 1.2.840.1 [id number] 0096 Methodi 00:00:00 00:00:[address] 3.430.2.7 Hospit a .3.267288 l .8 2021-09-25 2021-09-25 Refill Mendez, 1.2.840.1 [id number] 3034 Methodi 00:00:00 00:00:[address]y 3.430.2.7 Hospit a .3.240291 l .8 2021-09-25 2021-09-25 Refill Mendez, 1.2.840.1 [id number] 4119 Methodi 00:00:00 00:00:[address] 3.430.2.7 Hospit a .3.108225 l .8 2021-09-12 2021-09-12 Refill Mendez, 1.2.840.1 [id number] 2711 Methodi 00:00:00 00:00:[address] 3.430.2.7 Hospit a .3.693507 l .8 2021-08-31 2021-08-31 Hospital Mendez, 1.2.840.1 [id number] 96193 Methodi 14:04:01 23:59:00 Encounter Lydia 01040.1.[address]y 3.430.2.7 Hospit a .3.757481 l .8 2021-08-31 2021-08-31 Hospital Mendez, 1.2.840.1 [id number] 97379 Methodi 14:03:49 14:03:49 Encounter Lydia 59020.1.[address]y 3.430.2.7 Hospit a .3.747721 l .8 2021-08-31 2021-08-31 Travel 1.2.840.1 1.2.173.067 7521 [id number] Methodi 00:00:00 00:00:[address] 3.430.2.7 0.2.7.3.698 Ho spita .3.652056 084.8 l .8 2021-08-31 2021-08-31 Outpatient MENDEZ, [facility] [id number] [address] [place] 00:00:00 00:00:[address] LYDIA [address] 2021-08-31 2021-08-31 Outpatient MENDEZ, [facility] [id number] [address] [place] [address] 00:00:00 00:00:00 LYDIA [address] 2021-08-22 2021-08-22 Telemedici [facility], 1.2.840.1 [id number] Methodi 10:30:00 11:09:15 anamaria Tran 22559.1.1 [address] 3.430.2.7 Hospit a .3.233220 l .8 2021-08-22 2021-08-22 [facility] [id number] [address] [place] 00:00:00 00:00:00 ANABELLA [address] 2021-08-17 2021-08-17 Travel 1.2.840.1 1.2.176.007 0983 158429 Methodi 00:00:00 00:00:[address] 3.430.2.7 0.2.7.3.698 Ho spita .3.243909 084.8 l .8 2021-08-15 2021-08-15 Travel 1.2.840.1 1.2.747.600 1927 076551 Methodi 00:00:00 00:00:[address] 3.430.2.7 0.2.7.3.698 Ho spita .3.172011 084.8 l .8 2021-08-01 2021-08-01 Travel 1.2.840.1 1.2.520.372 2049 623821 Methodi 00:00:00 00:00:[address] 3.430.2.7 0.2.7.3.698 Ho spita .3.802303 084.8 l .8 2021-07-27 2021-07-27 Orders Mendez, 1.2.840.1 [id number] 4099 Methodi 00:00:00 00:00:00 Only Lydia 68359.1.[address]y 3.430.2.7 Hospit a .3.235123 l .8 2021-07-27 2021-07-27 Refill Mendez, 1.2.840.1 [id number] 0938 Methodi 00:00:00 00:00:[address] 3.430.2.7 Hospit a .3.569918 l .8 2021-07-26 2021-07-26 Office Mendez, 1.2.840.1 [id number] 7533 Methodi 15:00:00 16:23:46 Visit Lydia 18611.1.[address]y 3.430.2.7 Hospit a .3.742094 l .8 2021-07-26 2021-07-26 Outpatient MENDEZ, [facility] [id number] [address] [place] [address] 00:00:00 00:00:[address] LYDIA [address] 2021-07-25 2021-07-25 Travel 1.2.840.1 1.2.099.122 0278 997983 Methodi 00:00:00 00:00:[address] 3.430.2.7 0.2.7.3.698 Ho spita .3.711911 084.8 l .8 2021-07-20 2021-07-20 Telephone Dee, 1.2.840.1 [id number] 2099 [id number] Methodi 00:00:00 00:00:[address] 3.430.2.7 Hospit a .3.595149 l .8 2021-07-04 2021-07-04 Telephone Dee, 1.2.840.1 [id number] 2099 696165 Methodi 00:00:00 00:00:[address] 3.430.2.7 Hospit a .3.799705 l .8 2021-06-17 2021-06-17 Refill Mendez, 1.2.840.1 [id number] 4098 Methodi 00:00:00 00:00:[address] 3.430.2.7 Hospit a .3.588626 l .8 2021-05-08 2021-05-08 Office Mendez, 1.2.840.1 [id number] 8815 Methodi 10:45:00 12:02:48 Visit Lydia 81685.1.[address] 3.430.2.7 Hospit a .3.930681 l .8 2021-05-08 2021-05-08 Outpatient MENDEZ, [facility] [id number] [address] [place] 00:00:00 00:00:[address]YDIA [address] 2021-05-05 2021-05-05 Travel 1.2.840.1 1.2.268.508 4850 026659 Methodi 00:00:00 00:00:[address] 3.430.2.7 0.2.7.3.698 Ho spita .3.446056 084.8 l .8 2021-05-05 2021-05-05 Refill Mendez, 1.2.840.1 [id number] 6449 Methodi 00:00:00 00:00:[address] 3.430.2.7 Hospit a .3.361191 l .8 2021-05-03 2021-05-03 Refill Mendez, 1.2.840.1 [id number] 6586 Methodi 00:00:00 00:00:[address] 3.430.2.7 Hospit a .3.793287 l .8 2021-04-17 2021-04-17 Refill Mendez, 1.2.840.1 [id number] 2749 Methodi 00:00:00 00:00:[address] 3.430.2.7 Hospit a .3.731435 l .8 2021-02-07 2021-02-07 Outpatient BRIGITTE IZAGUIRRE MDA MDA [id number] 06:45:00 23:59:00 ZAFAR Chong n 2021-02-07 2021-02-07 Outpatient BRIGITTE IZAGUIRRE MDA MDA [id number] 169 14:22:41 16:02:07 ZAFAR mata R n 2021-02-07 2021-02-07 Outpatient BRIGITTE IZAGUIRRE MDA MDA [id number] 07:45:36 07:45:36 ZAFAR valenciaso R n 2021-01-30 2021-01-30 Outpatient BRIGITTE IZAGUIRRE MDA MDA [id number] MD 08:15:00 23:59:00 ZAFAR valenciaso R n 2021-01-30 2021-01-30 Outpatient BRIGITTE IZAGUIRRE MDA MDA [id number] 589 07:31:43 07:31:43 ZAFAR Coronado derso R n 2021-01-16 2021-01-16 Refill Mendez, 1.2.840.1 [id number] 8580 Methodi 00:00:00 00:00:[address] 3.430.2.7 Hospit a .3.514997 l .8 2021-01-15 2021-01-15 Refill Mendez, 1.2.840.1 [id number] 1430 Methodi 00:00:00 00:00:[address]y 3.430.2.7 Hospit a .3.291204 l .8 2021-01-11 2021-01-11 Refill Mendez, 1.2.840.1 [id number] 8764 Methodi 00:00:00 00:00:[address] 3.430.2.7 Hospit a .3.877983 l .8 2020-12-26 2020-12-26 Office Mendez, 1.2.840.1 [id number] 9325 Methodi 10:41:32 12:13:19 Visit Lydia 81208.1.[address]y 3.430.2.7 Hospit a .3.571916 l .8 2020-12-23 2020-12-23 Travel 1.2.840.1 1.2.276.445 3580 [id number] Methodi 00:00:00 00:00:[address] 3.430.2.7 0.2.7.3.698 Ho spita .3.820913 084.8 l .8 2020-12-13 2020-12-13 Orders Mendez, 1.2.840.1 [id number] 6441 Methodi 00:00:00 00:00:00 Only Lydia 23055.1.[address]y 3.430.2.7 Hospit a .3.847129 l .8 2020-12-13 2020-12-13 Refill Mendez, 1.2.840.1 [id number] 4613 Methodi 00:00:00 00:00:[address]y 3.430.2.7 Hospit a .3.374748 l .8 2020-12-12 2020-12-12 Telephone Mendez, 1.2.840.1 [id number] 2099 [id number] Methodi 00:00:00 00:00:[address]y 3.430.2.7 Hospit a .3.710469 l .8 2020-11-29 2020-11-29 Orders Mendez, 1.2.840.1 [id number] 9951 Methodi 00:00:00 00:00:00 Only Lydia 32020.1.[address]y 3.430.2.7 Hospit a .3.639972 l .8 2020-11-28 2020-11-28 Infusion Buckner, 1.2.840.1 [id number] 10869 Methodi 12:48:54 14:41:35 Jim Whitley 56844.1.[address] 3.430.2.7 Hospit a .3.256105 l .8 2020-11-28 2020-11-28 Telemedici Mendez, 1.2.840.1 [id number] Methodi 10:23:08 10:23:22 ne Lydia 18498.1.[address]y 3.430.2.7 Hospit a .3.665283 l .8 2020-11-28 2020-11-28 Telephone Mendez, 1.2.840.1 [id number] 2099 094113 Methodi 00:00:00 00:00:[address] 3.430.2.7 Hospit a .3.743420 l .8 2020-11-28 2020-11-28 Telephone Gm, 1.2.840.1 [id number] Methodi 00:00:00 00:00:[address] 3.430.2.7 Hospit a .3.042533 l .8 2020-11-28 2020-11-28 Orders Mendez, 1.2.840.1 [id number] 5105 Methodi 00:00:00 00:00:00 Only Lydia 48343.1.[address]y 3.430.2.7 Hospit a .3.191873 l .8 2020-11-28 2020-11-28 Travel 1.2.840.1 1.2.995.532 8675 [id number] Methodi 00:00:00 00:00:[address] 3.430.2.7 0.2.7.3.698 Ho spita .3.548779 084.8 l .8 2020-10-01 2020-10-01 Orders Mendez, 1.2.840.1 [id number] 1501 Methodi 00:00:00 00:00:00 Only Lydia 15452.1.[address]y 3.430.2.7 Hospit a .3.798448 l .8 2020-10-01 2020-10-01 Refill Mendez, 1.2.840.1 [id number] 951049 9671 Methodi 00:00:00 00:00:[address] Dey 3.430.2.7 Hospit a .3.617402 l .8 2020-09-30 2020-09-30 Refill Mendez, 1.2.840.1 [id number] 9959 Methodi 00:00:00 00:00:[address] Dey 3.430.2.7 Hospit a .3.148795 l .8 2020-09-30 2020-09-30 Travel 1.2.840.1 1.2.912.430 1784 679725 Methodi 00:00:00 00:00:[address] 3.430.2.7 0.2.7.3.698 Ho spita .3.448468 084.8 l .8 2020-09-20 2020-09-20 Refill Mendez, 1.2.840.1 [id number] 1041 Methodi 00:00:00 00:00:[address] Dey 3.430.2.7 Hospit a .3.859190 l .8 2020-09-15 2020-09-15 Travel 1.2.840.1 1.2.848.590 8773 511332 Methodi 00:00:00 00:00:[address] 3.430.2.7 0.2.7.3.698 Ho spita .3.789800 084.8 l .8 2020-09-13 2020-09-13 Office Mendez, 1.2.840.1 [id number] 6744 Methodi 09:28:10 10:15:09 Visit Lydia 65673.1.[address] Dey 3.430.2.7 Hospit a .3.337064 l .8 2020-09-13 2020-09-13 Refill Mendez, 1.2.840.1 [id number] 933464 3215 Methodi 00:00:00 00:00:[address] Dey 3.430.2.7 Hospit a .3.892343 l .8 2020-09-12 2020-09-12 Travel 1.2.840.1 1.2.554.571 4732 182136 Methodi 00:00:00 00:00:[address] 3.430.2.7 0.2.7.3.698 Ho spita .3.516357 084.8 l .8 2020-08-31 2020-08-31 Refill Mendez, 1.2.840.1 [id number] 3824 Methodi 00:00:00 00:00:[address] Dey 3.430.2.7 Hospit a .3.724450 l .8 2020-08-30 2020-08-30 Orders Mendez, 1.2.840.1 [id number] 105867 0030 Methodi 00:00:00 00:00:00 Only Lydia 99161.1.[address] Dey 3.430.2.7 Hospit a .3.610231 l .8 2020-08-30 2020-08-30 Refill Mendez, 1.2.840.1 [id number] 605936 7717 Methodi 00:00:00 00:00:[address] Dey 3.430.2.7 Hospit a .3.418360 l .8 2020-08-23 2020-08-23 Telephone Mendez, 1.2.840.1 [id number] 2100 616334 Methodi 00:00:00 00:00:[address] Dey 3.430.2.7 Hospit a .3.433911 l .8 2020-08-02 2020-08-02 Outpatient EL IZAGUIRRE, MDA MDA [id number] 09:30:14 10:15:42 ZAFAR valenciaso R n 2020-07-27 2020-07-27 Outpatient EL IZAGUIRRE, MDA MDA [id number] 14:45:00 23:59:00 ZAFAR Coronado derso R n 2020-07-27 2020-07-27 Outpatient EL IZAGUIRRE, MDA MDA [id number] 252 13:44:33 14:44:00 ZAFAR Coronado derso R n 2020-07-27 2020-07-27 Outpatient EL IZAGUIRRE, MDA MDA [id number] 07:57:10 13:43:00 ZAFAR Coronado derso R n 2020-07-27 2020-07-27 Outpatient EL IZAGUIRRE, MDA [facility] [id number] 08:19:29 08:19:29 ZAFAR Chong n 2020-05-29 2020-05-29 Orders Mendez, 1.2.840.1 [id number] 0674 Methodi 00:00:00 00:00:00 Only Lydia 09689.1.[address] Dey 3.430.2.7 Hospit a .3.628073 l .8 2020-05-24 2020-05-24 Office Mendez, 1.2.840.1 [id number] 1133 Methodi 10:49:05 11:48:59 Visit Lydia 54636.1.[address] Dey 3.430.2.7 Hospit a .3.172734 l .8 2020-05-24 2020-05-24 Orders Mendez, 1.2.840.1 [id number] 1461 Methodi 00:00:00 00:00:00 Only Lydia 56903.1.[address] Dey 3.430.2.7 Hospit a .3.788247 l .8 2020-05-24 2020-05-24 Telephone Mendez, 1.2.840.1 [id number] 2100 219877 Methodi 00:00:00 00:00:[address] Dey 3.430.2.7 Hospit a .3.643405 l .8 2020-05-23 2020-05-23 Travel 1.2.840.1 1.2.190.237 0612 521815 Methodi 00:00:00 00:00:[address] 3.430.2.7 0.2.7.3.698 Ho spita .3.918124 084.8 l .8 2020-05-12 2020-05-12 Clinical Nichelle, 1.2.840.1 [id number] Methodi 09:21:07 09:26:07 Support Kolby [address]9092.1.[address] P. 3.430.2.7 Hospit a .3.419241 l .8 2020-04-26 2020-04-26 Refill Mendez, 1.2.840.1 [id number] Methodi 00:00:00 00:00:[address] Dey 3.430.2.7 Hospit a .3.275519 l .8 2020-04-24 2020-04-24 Travel 1.2.840.1 1.2.239.871 [id number] Methodi 00:00:00 00:00:[address] 3.430.2.7 0.2.7.3.698 Ho spita .3.566686 084.8 l .8 2020-04-21 2020-04-21 Clinical 1.2.840.1 [id number] Methodi 13:08:18 13:13:[address] 3.430.2.7 Hospit a .3.993130 l .8 2020-04-02 2020-04-02 Refill Mendez, 1.2.840.1 [id number] 8326 Methodi 00:00:00 00:00:[address] Dey 3.430.2.7 Hospit a .3.370686 l .8 2020-03-22 2020-03-22 Telephone Mendez, 1.2.840.1 [id number] [id number] Methodi 00:00:00 00:00:[address] Dey 3.430.2.7 Hospit a .3.773601 l .8 2020-01-28 2020-01-28 Outpatient MENDEZ, [facility] [id number] [address] [place] 00:00:00 00:00:[address] 2020-01-28 2020-01-28 Outpatient MENDEZ, [facility] [id number] [address] [place] 00:00:00 00:00:00 LYDIA [address] 2020-01-27 2020-01-27 Outpatient BRIGITTE IZAGUIRRE MDA [facility] [id number] 977 10:24:16 11:20:37 ZAFAR mata Arlette shields 2020-01-26 2020-01-26 Outpatient BRIGITTE NAVARRO [facility] [id number] 11:15:00 23:59:00 EDWARDSHANITA mcknight alyson 2020-01-26 2020-01-26 Outpatient BRIGITTE NAVARRO [facility] MDA [id number] 2788 09:45:32 11:14:00 EDWARDSHANITA mcknight alyson 2020-01-26 2020-01-26 Outpatient BRIGITTE NAVARRO MDA MDA [id number] 08:00:00 09:44:00 EDWARDSHANITA mcknight alyson 2020-01-26 2020-01-26 Outpatient BRIGITTE NAVARRO MDA MDA [id number] 08:34:10 08:34:10 EDWARDSHANITA mcknight n 2019-11-12 2019-11-12 Outpatient MENDEZ, [facility] [id number] [address] [place] 00:00:00 00:00:00 LYDIA [address] 2019-07-09 2019-07-09 Outpatient MENDEZ, [facility] [id number] [address] [place] 00:00:00 00:00:00 LYDIA [address] 2019-05-15 2019-05-15 Outpatient MENDEZ, [facility] [id number] [address] [place] 00:00:00 00:00:00 LYDIA [address] 2019-05-06 2019-05-06 Outpatient MENDEZ, [facility] [id number] [address] [place] 00:00:00 00:00:00 LYDIA [address] Results Test Description Test Time Test Comments Results Result Comments Source Comprehensive metabolic panel 2021-11-24 12:14:00 Test Item Value Reference Range Interpretation Comme nts Glucose (test code = 91 mg/dL 65-99 Fastin g reference 2345-7) interval BUN (test code = 3094-0) 24 mg/dL 7-25 Creatinine (test code = 1.00 mg/dL 0.50-1.03 2160-0) eGFR (test code = 8257) See_Comment The eGFR is based on the CKD-EPI 202 1 equation. To ca lculate the new eGFR fr om a previous Creati nine or Cystatin Cresul t, go to https://www.kid shanita.org/ professionals/k doqi/gfr %5Fcalculator [Automated mess age] The system which ge nerated this result tra nsmitted reference range : > OR = 60 mL/min/1.73m 2. The reference range was not used to interpr et this result as normal/abnormal . BUN/creatinine ratio NOT APPLICABLE See_Comment [Aut omated message] (test code = 3097-3) The sys tem which generated this result transmitted ref erence range: 6 - 22 ( calc). The reference r devin was not used to int erpret this result as normal/abnormal . Sodium (test code = 143 mmol/L 486-613 4795-2) Potassium (test code = 4.5 mmol/L 3.5-5.3 2823-3) Chloride (test code = 105 mmol/L 98-110 2075-0) CO2 (test code = 2027-9) 31 mmol/L 20-32 Calcium (test code = 10.1 mg/dL 8.6-10.4 83705-3) Protein (test code = 7.0 g/dL 6.1-8.1 2885-2) Albumin, S (test code = 4.6 g/dL 3.6-5.1 1751-7) Globulin, total (test See_Comment [Auto mated message] code = 60331-8) The system w Bring[employer] generated this result transmitted ref erence range: 1.9 - 3. 7 g/dL (calc). The ref erence range was not u sed to interpret this result as normal/abnor mal. Albumin/globulin ratio See_Comment [Aut omated message] (test code = 1759-0) The sys tem which generated this result transmitted ref erence range: 1.0 - 2. 5 (calc). The ref erence range was not u sed to interpret this result as normal/abnor mal. Total bilirubin (test 0.8 mg/dL 0.2-1.2 code = 1974-2) Alkaline phosphatase 68 U/L 37-153 (test code = 6768-6) AST (test code = 1920-8) 19 U/L 10-35 ALT (test code = 1742-6) 28 U/L 6-29 RAC (test code = RAC) Performing Organization Information: Site ID: RGA [facility]: [facility] Address: [address] [place] [phone] Director: Rene Raymundo [facility]id [id number] 12:14:00 Test Item Value Reference Range Interpretation Comments Cholesterol, total 108 mg/dL See_Comment [Automat ed (test code = 2093-3) message ] The system which generated this result transmitted reference range : <=200. The reference range was not used to interpret this result as normal/abnormal . HDL cholesterol 40 mg/dL See_Comment L [Automated (test code = 2085-9) message ] The system which generated this result transmitted reference range : > OR = 50. The reference range was not used to interpret this result as normal/abnormal . Triglycerides (test 115 mg/dL See_Comment [Automa clarence code = 2571-8) message] The system which generated this result transmitted reference range : <=150. The reference range was not used to interpret this result as normal/abnormal . LDL cholesterol mg/dL (calc) Reference ra nge: calculated (test <100 Desira ble code = 67059-8) range <100 m g/dL for primary prevention; <70 mg/dL for patients with C HD or diabetic patients with > or = 2 CHD risk factors. LDL-C is now calculated using the Nino-Natan calculation, which is a validated novel method providin g better accuracy than the Friedewald equation in the estimation of LDL-C. Nino S S et al. ANA. 2013;310(19): 7488-6545 (http://educati on .QuestDiagnosti Vertigo .com/faq/IPD743 ) Cholesterol/HDL See_Comment [Automated ratio (test code = message] The 9830-1) system which generated this result transmitted reference range : <5.0 (calc). Th e reference range was not used to interpret this result as normal/abnormal . Non-HDL cholesterol See_Comment For asim ents with (test code = diabetes plus 1 11379-2) major ASCVD ris k factor, treatin g to a non-HDL-C goal of <100 mg/dL (LDL-C of <70 mg/dL) is considered a therapeutic option. [Automated message] The system which generated this result transmitted reference range : <130 mg/dL (calc). The reference range was not used to interpret this result as normal/abnormal . RAC (test code = Performing RAC) Organization Information: Site ID: SAURAV [facility] Address: [address] [place] [address] Director: Rene Raymundo Lab Interpretation Abnormal (test code = 78948-4) [facility] CampusHemoglobin [id number] 12:14:00 Test Item Value Reference Range Interpretation Comments Hemoglobin A1C See_Comment For the purpo se of (test code = screening for t he 4548-4) presence ofdiab etes: <5.7% Consiste nt with the absenc e of diabetes5.7-6.4 % Consistent with increased risk for diabetes (prediabetes)> or =6.5% Consisten t with diabetes This a ssay result is consi stent with a decrease d riskof diabetes . Currently, no consensus exist s regarding use ofhemoglobin A1 c for diagnosis of di abetes in children. According to [place] er[place] Diabetes Associ ation (ADA)guidelines , hemoglobin A1c <7.0% represents optimalcontrol in non- di abetic patients. Differentmetric s may apply to specif ic patient populat ions. Standards of Il dical Care in Diabetes(ADA). [Automated mess age] The system Shozu generated this result transmitted ref erence range: <5.7 % o f total Hgb. The reference range was not used to int erpret this result as normal/abnormal . RAC (test code = Performing RAC) Organization Information: Site ID: SAURAV [facility] Address: [address] [place] [phone] Director: Rene Raymundo [facility] CampusT4, [id number] 12:14:00 Test Item Value Reference Range Interpretation Comments T4, free (test code 1.2 ng/dL 0.8-1.8 = 3024-7) RAC (test code = Performing Organization RAC) Information: Site ID: [facility] Name: [facility] Address: [address] [place] [address] Director: Rene Raymundo [facility] CampusThyroid stimulating [id number] 12:14:00 Test Item Value Reference Range Interpretation Comments TSH (test See_Comment [Automated mes tash] code = The system whic h 3016-3) generated this result transmit clarence reference range : 0.40 - 4.50 mIU /L. The reference r devin was not used to interpret this result as normal/abnormal . RAC (test Performing code = RAC) Organization Information: Site ID: CECELIA Name: [facility] Address: [address] [place] [address] Director: [facility], [id number] 12:14:00 Test Item Value Reference Range Interpretation Comments T3, free (test code 3.0 pg/mL 2.3-4.2 = 3051-0) RAC (test code = Performing Organization RAC) Information: Site ID: CECELIA Name: [facility] Lab Address: [address] [place] [address] Director: [facility] with platelet and [id number] 12:14:00 Test Item Value Reference Range Interpretation Comments WBC (test code = See_Comment [Automated 2390-2) message] The system which generated this result transmitted reference range : 3.8 - 10.8 Thousand/uL. Th e reference range was not used to interpret this result as normal/abnormal . RBC (test code = See_Comment [Automated 079-8) message] The system which generated this result transmitted reference range : 3.80 - 5.10 Million/uL. The reference range was not used to interpret this result as normal/abnormal . HGB (test code = 15.2 g/dL 11.7-15.5 718-7) HCT (test code = 45.3 % 35.0-45.0 H 4544-3) MCV (test code = 89.7 fL 80.0-100.0 787-2) MCH (test code = 30.1 pg 27.0-33.0 785-6) MCHC (test code = 33.6 g/dL 32.0-36.0 786-4) RDW (test code = 12.3 % 11.0-15.0 788-0) Platelet count (test See_Comment [Autom ated code = 777-3) message] The system which generated this result transmitted reference range : 140 - 400 Thousand/uL. Th e reference range was not used to interpret this result as normal/abnormal . MPV (test code = 11.6 fL 7.5-12.5 776-5) Neutrophils, See_Comment [Automated absolute (test code message] The = 751-8) system which generated this result transmitted reference range : 1,500 - 7,800 cells/uL. The reference range was not used to interpret this result as normal/abnormal . Lymphocytes, See_Comment [Automated absolute (test code message] The = 731-0) system which generated this result transmitted reference range : 850 - 3,900 cells/uL. The reference range was not used to interpret this result as normal/abnormal . Monocytes, absolute See_Comment [Automa clarence (test code = 742-7) message] The system which generated this result transmitted reference range : 200 - 950 cells/uL. The reference range was not used to interpret this result as normal/abnormal . Eosinophils, See_Comment [Automated absolute (test code message] The = 711-2) system which generated this result transmitted reference range : 15 - 500 cells/uL. The reference range was not used to interpret this result as normal/abnormal . Basophils, absolute See_Comment [Automa clarence (test code = 704-7) message] The system which generated this result transmitted reference range : 0 - 200 cells/u L. The reference range was not used to interpr et this result as normal/abnormal . Neutrophils (test 57.5 % code = 770-8) Lymphocytes (test 31.7 % code = 736-9) Monocytes (test code 6.4 % = 5905-5) Eosinophils (test 3.7 % code = 713-8) Basophils + RC (test 0.7 % code = 706-2) RAC (test code = Performing RAC) Organization Information: Site ID: RGA Name: [facility] Lab Address: [address] [place] [phone] Director: Rene Raymundo Lab Interpretation Abnormal (test code = 10628-5) [facility] CampusVitamin D 25 hydroxy [id number] 12:14:00 Test Item Value Reference Range Interpretation Comments Vitamin D, 91 ng/mL 30-100 Vitamin D Statu s 25-hydroxy (test 25-OH Vitam in D: code = 1988-04) Deficiency: < 20 ng/mLInsufficie ncy : 20 - 29 ng/mLOptimal: > or = 30 ng/mL F or 25-OH Vitamin D testing on patients on D2-supplementat ion and patients fo r whom quantitati on of D2 and D3 fractions is required, the QuestAssureD(TM )25 -OH VIT D, (D2,D3), LC/MS/ MS is recommended: order code 9288 8 (patients >2yrs).See Note 1 Note 1 For additional information, please refer to http://educatio n.Q uestDiagnostics .co m/faq/RWI099 (T his link is being provided for informational/e camelia ational purpose s only.) RAC (test code = Performing RAC) Organization Information: Site ID: SAURAVA Name: [facility] Address: [address] [place] [address] Director: Rene Raymundo [facility] CampusVitamin B12 and [id number] 12:14:00 Test Item Value Reference Range Interpretation Comments Vitamin B12 (test >2000 200-1100 H code = 2132-9) Folate (test code = 12.9 ng/mL Referen ce 2284-8) Range Low: <3.4 Borderline: 3.4-5.4 Normal: >5.4 RAC (test code = RAC) Performing Organization Information: Site ID: SAURAVA Name: [facility] Address: [address] [place] [address] Director: Rene Raymundo Lab Interpretation Abnormal (test code = 10522-8) [facility] CampusUrinalysis screen and microscopy, with reflex to culture 2021-11-24 12:14:00 Test Item Value Reference Range Interpretation Comments Color, UA (test code YELLOW YELLOW = 5778-6) Appearance (test CLEAR CLEAR code = 5767-9) Specific gravity, 1.001-1.035 urine (test code = 5811-5) pH, urine (test code < OR = 5.0 5.0-8.0 = 5803-2) Glucose, urine (test NEGATIVE NEGATIVE code = 49117-3) Bilirubin, UA (test NEGATIVE NEGATIVE code = 5770-3) Ketones, UA (test NEGATIVE NEGATIVE code = 8884-8) Occult blood, urine NEGATIVE NEGATIVE (test code = 5794-3) Protein, UA (test NEGATIVE NEGATIVE code = 52761-3) Nitrite, UA (test NEGATIVE NEGATIVE code = 5802-4) Leukocyte esterase, NEGATIVE NEGATIVE UA (test code = 5799-2) WBC, UA (test code = NONE SEEN See_Comment [Autom ated 5821-4) message] The system which generated this result transmitted reference range : < OR = 5 /HPF. The reference range was not used to interpr et this result as normal/abnormal . RBC, UA (test code = NONE SEEN See_Comment [Autom ated 03161-4) message] The system which generated this result transmitted reference range : < OR = 2 /HPF. The reference range was not used to interpr et this result as normal/abnormal . Squamous epithelial 10-20 See_Comment A [Automa clarence cells, UA (test code message ] The = 29405-7) system which generated this result transmitted reference range : < OR = 5 /HPF. The reference range was not used to interpr et this result as normal/abnormal . Bacteria, UA (test NONE SEEN NONE SEEN /HPF code = 5769-5) Hyaline casts, UA NONE SEEN NONE SEEN /LPF (test code = 5796-8) Note: (test code = This urin e was 8251-1) analyzed for th e presence of WBC , RBC, bacteria, casts, and othe r formed elements . Only those elements seen were reported. Reflex (test code = NO CULTU RE 630-4) INDICATED RAC (test code = Performing RAC) Organization Information: Site ID: RGA [facility] Address: [address] [place] [address] Director: Rene Raymundo Lab Interpretation Abnormal (test code = 21223-7) [facility], [facility]PLETE, WITH REFLEX TO [id number] 09:33:00 Test Item Value Reference Range Interpretation Comments Color, UA (test YELLOW YELLOW code = 5778-6) Appearance (test CLEAR CLEAR code = 5767-9) Specific gravity, 1.001-1.035 urine (test code = 5811-5) pH, urine (test < OR = 5.0 5.0-8.0 code = 5803-2) Glucose, urine NEGATIVE NEGATIVE (test code = 76062-5) Bilirubin, UA NEGATIVE NEGATIVE (test code = 5770-3) Ketones, UA (test NEGATIVE NEGATIVE code = 2514-8) Occult blood, NEGATIVE NEGATIVE urine (test code = 5794-3) Protein, UA (test NEGATIVE NEGATIVE code = 42954-9) Nitrite, UA (test NEGATIVE NEGATIVE code = 5802-4) Leukocyte NEGATIVE NEGATIVE esterase, UA (test code = 5799-2) WBC, UA (test NONE SEEN See_Comment [Automated code = 5821-4) message] The system which generated this result transmit clarence reference range : < OR = 5 /HPF. Th e reference range was not used to interpret this result as normal/abnormal . RBC, UA (test NONE SEEN See_Comment [Automated code = 34389-3) message] The system which generated this result transmit clarence reference range : < OR = 2 /HPF. Th e reference range was not used to interpret this result as normal/abnormal . Squamous 0-5 See_Comment [Automated epithelial cells, message] T he UA (test code = system which 24579-2) generated this result transmit clarence reference range : < OR = 5 /HPF. Th e reference range was not used to interpret this result as normal/abnormal . Bacteria, UA NONE SEEN NONE SEEN /HPF (test code = 5769-5) Hyaline casts, UA NONE SEEN NONE SEEN /LPF (test code = 5796-8) Reflex (test code NO CULTURE = 630-4) INDICATED RAC (test code = Performing RAC) Organization Information: Site ID: RGA [facility] Address: [address] [place] [address] Director: Rene Raymundo [facility] [id number] 02:43:00 Test Item Value Reference Interpretation Comments Range Glucose (test code 76 mg/dL 65-99 Fasting reference = 2345-7) interval BUN (test code = 22 mg/dL 7-25 3094-0) Creatinine (test 0.95 mg/dL 0.50-1.05 For patient s >49 code = 2160-0) years of age, the reference limit for Creatinine is approximately 1 3% higher for peopleidentifie d as -Jessica n. EGFR Non-Afr. See_Comment [Automated me ssage] Japanese (test code The syst em which = 2768) generated this result transmit clarence reference range : > OR = 60 mL/min/1.73m2. The reference range was not used to interpret this result as normal/abnormal . EGFR See_Comment [Automated mes tash] Japanese (test code The syst which = 2774) generated this result transmit clarence reference range : > OR = 60 mL/min/1.73m2. The reference range was not used to interpret this result as normal/abnormal . BUN/creatinine NOT APPLICABLE See_Comment [Automated message] ratio (test code = The syste which 3097-3) generated this result transmit clarence reference range : 6 - 22 (calc). The reference range was not used to interpret this result as normal/abnormal . Sodium (test code = 142 mmol/L 183-216 4076-2) Potassium (test 4.6 mmol/L 3.5-5.3 code = 2823-3) Chloride (test code 100 mmol/L 98-110 = 2075-0) CO2 (test code = 27 mmol/L 20-32 2027-9) Calcium (test code 10.4 mg/dL 8.6-10.4 = 94867-3) Protein (test code 7.7 g/dL 6.1-8.1 = 2885-2) Albumin, S (test 4.7 g/dL 3.6-5.1 code = 1751-7) Globulin, total See_Comment [Automated message] (test code = The system [facility] h [address]-2) generated this result transmit clarence reference range : 1.9 - 3.7 g/dL (medina c). The reference r devin was not used to interpret this result as normal/abnormal . Albumin/globulin See_Comment [Automated message] ratio (test code = [employer] which 1759-0) generated this result transmit clarence reference range : 1.0 - 2.5 (calc). T he reference range was not used to interpret this result as normal/abnormal . Total bilirubin 0.8 mg/dL 0.2-1.2 (test code = 1974-2) Alkaline 61 U/L 37-153 phosphatase (test code = 6768-6) AST (test code = 24 U/L 10-35 1920-8) ALT (test code = 38 U/L 6-29 H 1742-6) RAC (test code = Performing RAC) Organization Information: Site ID: CECELIA Name: [facility] Address: [address] [place] [address] Director: Rene Raymundo Lab Interpretation Abnormal (test code = 10224-1) [facility] Institute[facility]id [id number] 02:43:00 Test Item Value Reference Range Interpretation Comments Cholesterol, total 143 mg/dL <200 (test code = 2093-3) HDL cholesterol 43 mg/dL See_Comment L [Automated (test code = 2084-) message ] The system which generated this result transmitted reference range : > OR = 50. The reference range was not used to interpret this result as normal/abnormal . Triglycerides (test 199 mg/dL <150 H code = 2571-8) LDL cholesterol mg/dL (calc) Reference ra nge: calculated (test <100 Desira ble code = 93987-0) range <100 m g/dL for primary prevention; <70 mg/dL for patients with C HD or diabetic patients with > or = 2 CHD risk factors. LDL-C is now calculated using the Nino-Natan calculation, which is a validated novel method providin g better accuracy than the Friedewald equation in the estimation of LDL-C. Nino S S et al. ANA. 2013;310(19): 9131-9441 (http://educati on .[employer] PharmaceuticalsDiagnosti Vertigo .com/faq/UOG517 ) Cholesterol/HDL See_Comment [Automated ratio (test code = message] The 9830-1) system which generated this result transmitted reference range : <5.0 (calc). Th e reference range was not used to interpret this result as normal/abnormal . Non-HDL cholesterol See_Comment For asim ents with (test code = diabetes plus 1 25321-3) major ASCVD ris k factor, treatin g to a non-HDL-C goal of <100 mg/dL (LDL-C of <70 mg/dL) is considered a therapeutic option. [Automated message] The system which generated this result transmitted reference range : <130 mg/dL (calc). The reference range was not used to interpret this result as normal/abnormal . RAC (test code = Performing RAC) Organization Information: Site ID: RGA Name: [facility] Lab Address: [address] [place] [address] Director: Rene Raymundo Lab Interpretation Abnormal (test code = 74488-3) [facility] CampusHemoglobin [id number] 02:43:00 Test Item Value Reference Range Interpretation Comments Hemoglobin A1C See_Comment For the purpo se of (test code = screening for t he 4548-4) presence ofdiab etes: <5.7% Consisten t with the absence of diabetes5.7-6.4 % Consistent with increased risk for diabetes (prediabetes)> or =6.5% Consisten t with diabetes This a ssay result is consi stent with a decrease d riskof diabetes . Currently, no consensus exist s regarding use ofhemoglobin A1 c for diagnosis of di abetes in children. According to [place] er[place] Diabetes Associ ation (ADA)guidelines , hemoglobin A1c <7.0% represents optimalcontrol in non- di abetic patients. Differentmetric s may apply to specif ic patient populat ions. Standards of Il dical Care in Diabetes(ADA). [Automated mess age] The system whic [employer] generated this result transmitted ref erence range: <5.7 % o f total Hgb. The reference range was not used to int erpret this result as normal/abnormal . RAC (test code = Performing RAC) Organization Information: Site ID: RGA Name: [facility] Lab Address: [address] [place] [address] Director: Rene Raymundo [facility] CampusCBC with platelet and [id number] 02:43:00 Test Item Value Reference Range Interpretation Comments WBC (test code = See_Comment [Automated 8290-2) message] The system which generated this result transmitted reference range : 3.8 - 10.8 Thousand/uL. Th e reference range was not used to interpret this result as normal/abnormal . RBC (test code = See_Comment [Automated 184-8) message] The system which generated this result transmitted reference range : 3.80 - 5.10 Million/uL. The reference range was not used to interpret this result as normal/abnormal . HGB (test code = 15.5 g/dL 11.7-15.5 718-7) HCT (test code = 45.1 % 35.0-45.0 H 4544-3) MCV (test code = 88.4 fL 80.0-100.0 787-2) MCH (test code = 30.4 pg 27.0-33.0 785-6) MCHC (test code = 34.4 g/dL 32.0-36.0 786-4) RDW (test code = 12.8 % 11.0-15.0 788-0) Platelet count (test See_Comment [Autom ated code = 777-3) message] The system which generated this result transmitted reference range : 140 - 400 Thousand/uL. Th e reference range was not used to interpret this result as normal/abnormal . MPV (test code = 11.5 fL 7.5-12.5 776-5) Neutrophils, See_Comment [Automated absolute (test code message] The = 751-8) system which generated this result transmitted reference range : 1,500 - 7,800 cells/uL. The reference range was not used to interpret this result as normal/abnormal . Lymphocytes, See_Comment [Automated absolute (test code message] The = 731-0) system which generated this result transmitted reference range : 850 - 3,900 cells/uL. The reference range was not used to interpret this result as normal/abnormal . Monocytes, absolute See_Comment [Automa clarence (test code = 742-7) message] The system which generated this result transmitted reference range : 200 - 950 cells/uL. The reference range was not used to interpret this result as normal/abnormal . Eosinophils, See_Comment [Automated absolute (test code message] The = 711-2) system which generated this result transmitted reference range : 15 - 500 cells/uL. The reference range was not used to interpret this result as normal/abnormal . Basophils, absolute See_Comment [Automa clarence (test code = 704-7) message] The system which generated this result transmitted reference range : 0 - 200 cells/u L. The reference range was not used to interpr et this result as normal/abnormal . Neutrophils (test 51.9 % code = 770-8) Lymphocytes (test 36.2 % code = 736-9) Monocytes (test code 7.8 % = 5905-5) Eosinophils (test 3.4 % code = 713-8) Basophils + RC (test 0.7 % code = 706-2) RAC (test code = Performing RAC) Organization Information: Site ID: CECELIA [facility] Address: [address] [place] [phone] Director: Rene Raymundo Lab Interpretation Abnormal (test code = 66705-4) [facility] 25 hydroxy [id number] 02:43:00 Test Item Value Reference Range Interpretation Comments Vitamin D, 75 ng/mL 30-100 Vitamin D Statu s 25-hydroxy (test 25-OH Vitam in D: code = 1988-) Deficiency: < 20 ng/mLInsufficie ncy : 20 - 29 ng/mLOptimal: > or = 30 ng/mL F or 25-OH Vitamin D testing on patients on D2-supplementat ion and patients fo r whom quantitati on of D2 and D3 fractions is required, the QuestAssureD(TM )25 -OH VIT D, (D2,D3), LC/MS/ MS is recommended: order code 9288 8 (patients >2yrs).See Note 1 Note 1 For additional information, please refer to [email or web address] [email or web address] [email or web address] .[email or web address] m/faq/QEU871 (T his link is being provided for informational/e camelia ational purpose s only.) RAC (test code = Performing RAC) Organization Information: Site ID: CECELIA [facility] Address: [address] [place] [phone] Director: Rene Raymundo [facility] B12 and [id number] 02:43:00 Test Item Value Reference Range Interpretation Comments Vitamin B12 (test >2000 200-1100 H code = 2132-9) Folate (test code = 18.9 ng/mL Referen ce 2284-8) Range Low: <3.4 Borderline: 3.4-5.4 Normal: >5.4 RAC (test code = RAC) Performing Organization Information: Site ID: CECELIA Name[facility] Address: [address] [place] [phone] Director: Rene Raymundo Lab Interpretation Abnormal (test code = 40376-5) [facility], COMPLETE, WITH REFLEX TO [id number] 02:43:00 Test Item Value Reference Range Interpretation Comments Color, UA TNP TEST NOT PERFOR MED No (test code = suitable specim en 5778-6) received.Please review the testrequire ments at [employer] RAC (test Performing code = RAC) Organization Information: Site ID: RGA Name: [facility] Address: [address] [place] [phone] Director: Rene Raymundo [facility] CampusTHINPREP TIS PAP AND HR HPV DNA REFLEX GENOTYPES 16,18 2020-09-18 02:26:00 Test Item Value Reference Interpretation Comments Range Clinical information None gi joe (test code = 03295-6) Date of last NONE GIVEN menstrual period (test code = 8665-2) Prev. pap: (test code NONE G IVEN = 42108-5) Prev. bx: (test code NONE GI JOE = 93324-4) Source (test code = None giv [place] 35899-1) Statement of adequacy Satisf actory for (test code = 16043-1) evalua tion.Endocervi medina/transformat ion zone component absent. Interpretation/result Negati ve for : (test code = intraepitheli al 45688-2) lesion or malignancy. Comment (test code = This Pa p test has ) been evaluated with computerassiste d technology. Maxillofacial Prosthetics Dentist CMP, CT(ASC P)CT (test code = 57328-8) screen ing location: [facility] [address] [facility], [place] [address] 2 Comment (test code = EXPLANA TORY NOTE: 7991826) The Pap is a screening test for cervical cancer . It is not a diagno stic test and is sub ject to false negati ve and false posit gutierrez results. It is most reliable when a satisfactory sa mple, regularly obtai sol, is submitted wi th relevant clinic al findings and history, and wh en the Pap result is evaluated along with historic and cu rrent clinical information. HPV high risk Not Detected NOT DETECTED Not Detected H igh (ThinPrep) (test code Risk H PV types = 1564) (16,18,31,33,35 ,39,4 5,51,52,56,58,5 9,66, 68) were not detected. Other HPVtypes which cause anogenital lesi ons may be present. The significance of the other types of HPVin malignant proce sses has not been established. Methodology: Re al Time PCR RAC (test code = RAC) Performing Organization Information: Site ID: AMD Name: [facility]Jagdeep armendariz [facility] Address: [address] [place] [address] Dr Oliveira, [place] Director: Pola Oro M.D.,PhD Site ID: RGA Name: [facility] Lab Address: [address] [place] [phone] Director: Rene Allenridge [facility]
[2022-01-30] MEDS ORDERED: MORPHINE 4 MG/ML SYR ONE (06:04)
[2022-01-30] MEDS ORDERED: ONDANSETRON 4 MG/2 ML VIAL ONE (06:04)
[2022-01-30 06:15] LABS: Absolute Lymphocytes (CBC) 1.7 K/uL (0.7-4.9); Hematocrit 42.1 % (36.0-45.0); Lymphocytes % 27.7 % (15.3-44.8); MCV 87.4 fL (80-100); MPV 9.4 fL (7.6-11.3); RBC Red Blood Cell Count 4.82 M/uL (3.86-4.86)
[2022-01-30 06:31] LABS: Albumin 3.8 g/dL (3.4-5.0); Bilirubin Total 0.8 mg/dL (0.2-1.0); Potassium 3.6 mmol/L (3.5-5.1); Protein, Total 7.4 g/dL (6.4-8.2); Troponin High Sensitivity 8.5 pg/mL (<58.9)
--- NOTE | 2022-01-30 07:15 | RAD REPORT ---
EXAM DESCRIPTION: CT - Head Brain Wo Cont - 01/30/2022 6:59 am CLINICAL HISTORY: headache, paresthesias right face and right arm COMPARISON: No comparisons TECHNIQUE: Axial 5 mm thick images of the head were obtained without IV contrast. All CT scans are performed using dose optimization technique as appropriate and may include automated exposure control or mA/KV adjustment according to patient size. FINDINGS: No intracranial hemorrhage, mass, edema or shift of mid-line structures. No acute infarcti on changes seen. No abnormal extra-axial fluid collections. Ventricles are normal. Physiologic and ar terial calcifications are present. Mastoid air cells and visualized portions of the paranasal sinuses are clear. No acute bony findings. IMPRESSION: Negative non-contrast CT head examination for acute finding.
[2022-01-30] MEDS ORDERED: DIAZEPAM 5 MG TABLET ONE (07:18)
--- NOTE | 2022-01-30 07:21 | RAD REPORT ---
EXAM DESCRIPTION: CT - Angio Aorta For Dissection - 01/30/2022 6:58 am CLINICAL HISTORY: abd pain, right arm pain, HTN COMPARISON: None. TECHNIQUE: Dynamically enhanced 3 mm thick images of the chest, abdomen, and pelvis were obtained du ring administration of approximately 150mL Isovue 370 IV contrast. Sagittal and coronal reconstructio n images were generated using MIP and reviewed. Exam utilizes a protocol to evaluate entire course of the aorta. All CT scans are performed using dose optimization technique as appropriate and may include automated exposure control or mA/KV adjustment according to patient size. FINDINGS: Aorta is normal in diameter with no dissection or other acute aortic findings. Reconstruct ion images show no significant findings. Pulmonary arteries are normal as well. No cardiomegaly, pericardial thickening or pericardial effusio n. No mass or infiltrate in the lung parenchyma. No pleural thickening, pleural effusion or pneumothorax . No abnormal mediastinal or hilar mass or lymphadenopathy seen. No chest wall mass or abnormal axillar y lymphadenopathy. Celiac, SMA and renal arteries show no suspicious findings. Patient has incidental note of a small ac cessory its iliac artery. Gallbladder is absent. No biliary tree dilatation. Solid abdominal viscera and bowel show no significant findings. Moderate sigmoid diverticulosis present without diverticuliti s. No mass or abnormal lymphadenopathy. No free air, free fluid or inflammatory stranding. No urinar y bladder abnormality. Prominent lower lumbar facet joint degenerative changes are present. No acute bone finding. IMPRESSION: Negative CT scan of the aorta for acute or significant finding. No other acute or emergent findings on chest, abdomen and pelvis examination.
[2022-01-30] MEDS ORDERED: LORazepam 2 MG/ML VIAL ONE (07:47)
[2022-01-30 07:54] LABS: Urine Blood Negative (Negative); Urine Glucose Negative (Negative); Urine Protein Negative (Negative); Urine Specific Gravity <=1.005 (1.005-1.030)
--- NOTE | 2022-01-30 08:47 | RAD REPORT ---
EXAM DESCRIPTION: MRI - Brain Wo Cont - 01/30/2022 8:32 am CLINICAL HISTORY: paresthesias right face and arm COMPARISON: Head Brain Wo Cont dated 01/30/2022 TECHNIQUE: Sagittal T1-weighted images were obtained along with axial PD, heavily T2-weighted and T2 -FLAIR images. Axial DWI and ADC mapping sequences were also obtained along with coronal heavily T2-w eighted images. FINDINGS: No intracranial hemorrhage, mass or acute infarction. There is no edema or shift of midlin e structures. No extra-axial fluid collections. Rodriguez-matter/white matter junction is preserved. Signa l voids are seen as a normal finding in the major intracranial vessels. No atrophy or chronic ischemic change. Ventricles are normal. Patient has rare punctate areas of hype rintense T2/IR signal in the cerebral white matter. These are nonspecific and can be normal variants. Early chronic ischemic change is possible. Vasculitis, demyelinization or migraine headache etiologi es are unlikely without supporting clinical presentation. Dx IMPRESSION: No acute infarction. No hemorrhage, mass or acute intracranial finding. Rare scattered punctate foci of T2 signal abnormality are nonspecific. Differential considerations a re detailed in the body of the report.
--- NOTE | 2022-01-30 09:09 | EDPHYS ---
Physician Documentation [facility] Name: Alondra Kc Age: 56 yrs Sex: Female : 1965 Arrival Date: 01/30/2022 Time: 05:39 Bed 2 Private MD: ED Physician Ramsey Youssef HPI: 01/30 05:54 This 56 yrs old Female presents to ER via Unassigned with complaints of abd pain, rn tingling of face and arm. 05:55 The patient presents with abdominal pain right lower quadrant. Onset: The rn symptoms/episode began/occurred yesterday. The symptoms radiate to face and right arm. Associated signs and symptoms: Pertinent negatives: nausea and vomiting, blood in stools, fever, hematuria, shortness of breath. The symptoms are described as sharp, stabbing. Modifying factors: The symptoms are alleviated by nothing, the symptoms are aggravated by nothing. Severity of pain: At its worst the pain was moderate in the emergency department the pain is unchanged. The patient has not experienced similar symptoms in the past. The patient has not recently seen a physician. Pt reports dealing with abdominal pain, right lower quadrant, since yesterday afternoon. In evening, pain began to radiate up to chest and right arm/head. Overnight began to notice tingling of right face and arm. No weakness. Reports tingling is improving with time and feels as if she "was slapped". No hx of CVA. Takes plavix and aspirin. Pain began yesterday, tingling began sometime between 2-2:30 AM today and is improving. No trauma or fall. . Historical: - Allergies: 06:05 PENICILLINS; bb 06:05 Sulfa (Sulfonamide Antibiotics); bb - Home Meds: 06:05 valsartan-hydrochlorothiazide oral [Active]; nebivolol oral [Active]; Viibryd oral bb [Active]; pantoprazole oral [Active]; metronidazole cream [Active]; Metformin Oral [Active]; Bupropion Oral [Active]; atorvastatin oral [Active]; Albuterol Inhl [Active]; Nitroglycerin SL [Active]; cholecalciferol (vitamin D3) oral [Active]; aspirin Oral [Active]; Plavix Oral [Active]; - PMHx: 06:05 breast cancer; CAD; Diabetes mellitus; Hypertensive disorder; heart stent; bb - Immunization history:: Pfizer x 4. - Social history:: Smoking status: unknown. - Family history:: not pertinent. - Hospitalizations: : No recent hospitalization is reported. ROS: 05:55 Constitutional: Negative for fever, chills, and weight loss, Eyes: Negative for injury, rn pain, redness, and discharge, Neck: Negative for injury, pain, and swelling, Cardiovascular: Negative for palpitations, and edema, Respiratory: Negative for shortness of breath, cough, wheezing, and pleuritic chest pain, Abdomen/GI: + RLQ abd pain Back: Negative for injury and pain, MS/Extremity: Negative for injury and deformity, Skin: Negative for injury, rash, and discoloration, Neuro: Negative for weakness, and seizure. Exam: 05:55 Constitutional: This is a well developed, well nourished patient who is awake, alert, rn appears anxious Head/Face: Normocephalic, atraumatic. Eyes: Pupils equal round and reactive to light, extra-ocular motions intact. Periorbital areas with no swelling, redness, or edema. Cardiovascular: Regular rate and rhythm. No pulse deficits. Respiratory: No increased work of breathing, no retractions or nasal flaring. Abdomen/GI: + tender RLQ with guarding Skin: Warm, dry MS/ Extremity: Pulses equal, no cyanosis. Neurovascular intact. Full, normal range of motion. Equal circumference. Neuro: Awake and alert, GCS 15, oriented to person, place, time, and situation. Cranial nerves II-XII grossly intact. Motor strength 5/5 in all extremities.Slight decrease in sensation to soft touch right face and scalp as well as right arm. Cerebellar exam normal. 06:36 ECG was reviewed by the Attending Physician. rn Vital Signs: 05:45 BP 161 / 94; Pulse 78; Resp 18 S; Temp 98.6(O); Pulse Ox 97% on R/A; Weight 98.43 kg bb (R); Height 5 ft. 2 in. (157.48 cm) (R); Pain 5/10; 08:02 BP 155 / 67; Pulse 66; Resp 18; Pulse Ox 98% on R/A; Pain 6/10; mb9 08:43 BP 122 / 69; Pulse 64; Resp 18; Pulse Ox 98% on R/A; mb9 09:18 BP 122 / 59; Pulse 66; Resp 16; Pulse Ox 96% on R/A; mb9 05:45 Body Mass Index 39.69 (98.43 kg, 157.48 cm) bb MDM: 05:40 Patient medically screened. rn 09:06 Data reviewed: vital signs, nurses notes, lab test result(s), EKG, radiologic studies, ms3 and as a result, I will discharge patient. Data interpreted:. Counseling: I had a detailed discussion with the patient and/or guardian regarding: the historical points, exam findings, and any diagnostic results supporting the discharge/admit diagnosis, lab results, radiology results, the need for outpatient follow up, to return to the emergency department if symptoms worsen or persist or if there are any questions or concerns that arise at home. ED course: Discussed case with Dr. Salas. Patient is currently on aspirin and atorvastatin. Patient to continue those medications. Patient to follow-up with Dr. Ivy in office. Patient understands and agrees with plan. All questions were answered. Return precautions discussed include worsening symptoms, numbness, weakness, slurred speech, or any other concerns.. 01/30 05:54 Order name: CBC with Diff; Complete Time: 06:36 01/30 05:54 Order name: CMP; Complete Time: 06:36 01/30 05:54 Order name: Lipase; Complete Time: 06:36 01/30 05:54 Order name: Troponin High Sensitivity; Complete Time: 06:36 01/30 06:27 Order name: CREATININE WHOLE BLOOD; Complete Time: 06:36 [facility] 01/30 07:54 Order name: Urine Dipstick-Ancillary; Complete Time: 08:21 [facility] 01/30 05:54 Order name: CT Aorta for Dissection; Complete Time: 08:21 rn 01/30 05:54 Order name: CT Head Brain wo Cont; Complete Time: 08:21 rn 01/30 05:54 Order name: EKG; Complete Time: 05:55 rn 01/30 07:07 Order name: Brain Wo Cont MRI; Complete Time: 08:51 rn 01/30 05:54 Order name: IV Saline Lock; Complete Time: 05:58 rn 01/30 05:54 Order name: Labs collected and sent; Complete Time: 05:58 rn 01/30 05:54 Order name: Urine Dipstick-Ancillary (obtain specimen); Complete Time: 07:57 rn 01/30 05:54 Order name: EKG - Nurse/Tech; Complete Time: 05:58 rn EC:36 Rate is 70 beats/min. Rhythm is regular. QRS [place] is Normal. CO interval is normal. QRS rn interval is normal. QT interval is normal. No Q waves. T waves are Normal. No ST changes noted. Clinical impression: NSR w/ Non-specific ST/T Changes. Interpreted by me. Reviewed by me. Administered Medications: 06:11 Drug: morphine 4 mg Route: IVP; Infused Over: 4 mins; Site: left forearm; jb4 06:12 Drug: Zofran (Ondansetron) 4 mg Route: IVP; Site: left forearm; jb4 07:22 Drug: Valium (diazepam) 5 mg Route: PO; iw 08:01 Drug: Ativan (LORazepam) 0.5 mg Route: IVP; Site: left wrist; mb9 09:17 Follow up: Response: No adverse reaction mb9 Disposition Summary: 01/30/22 09:08 Discharge Ordered Location: Home ms3 Condition: Stable ms3 Diagnosis - Lower abdominal pain, unspecified ms3 - Facial numbness ms3 Followup: ms3 - With: Maik Salas MD - When: 2 - 3 days - Reason: Recheck today's complaints Followup: ms3 - With: Private Physician - When: 2 - 3 days - Reason: Recheck today's complaints Discharge Instructions: - Discharge Summary Sheet ms3 - Abdominal Pain, Adult ms3 Forms: - Medication Reconciliation Form ms3 - Thank You Letter ms3 - Antibiotic Education ms3 - Work release form ss - Prescription Opioid Use ms3 Signatures: Dispatcher [employer] EDMS Britney George RN RN bb Williams, Irene, RN RN iw Nieto, Roman, MD MD rn Bryson, James, RN RN jb4 Ramsey Youssef DO DO ms3 Claudia Tran RN RN mb9 Corrections: (The following items were deleted from the chart) 05:58 05:55 Constitutional: Negative for fever, chills, and weight loss, Eyes: Negative for rn injury, pain, redness, and discharge, Neck: Negative for injury, pain, and swelling, Cardiovascular: Negative for chest pain, palpitations, and edema, Respiratory: Negative for shortness of breath, cough, wheezing, and pleuritic chest pain, Abdomen/GI: + RLQ abd pain Back: Negative for injury and pain, MS/Extremity: Negative for injury and deformity, Skin: Negative for injury, rash, and discoloration, Neuro: Negative for weakness, and seizure, rn
--- NOTE | 2022-01-30 09:09 | ER ---
Nurse's Notes [facility] Name: Alondra Kc Age: 56 yrs Sex: Female : 1965 Arrival Date: 01/30/2022 Time: 05:39 Bed 2 Private MD: Diagnosis: Lower abdominal pain, unspecified;Facial numbness Presentation: 01/30 05:45 Chief complaint: Patient states: she started having abdominal pain since yesterday bb morning which then radiated up her side into her shoulder then she began having facial numbness and tingling around 0230 this morning. Coronavirus screen: At this time, the client does not indicate any symptoms associated with coronavirus-19. Ebola Screen: No symptoms or risks identified at this time. Initial Sepsis Screen: Does the patient meet any 2 criteria? No. Patient's initial sepsis screen is negative. Does the patient have a suspected source of infection? No. Patient's initial sepsis screen is negative. Risk Assessment: Do you want to hurt yourself or someone else? Patient reports no desire to harm self or others. Onset of symptoms was January 29, 2022. 05:45 Method Of Arrival: Ambulatory 05:45 Acuity: ANDREIA 2 bb Historical: - Allergies: 06:05 PENICILLINS; bb 06:05 Sulfa (Sulfonamide Antibiotics); bb - Home Meds: 06:05 valsartan-hydrochlorothiazide oral [Active]; nebivolol oral [Active]; Viibryd oral bb [Active]; pantoprazole oral [Active]; metronidazole cream [Active]; Metformin Oral [Active]; Bupropion Oral [Active]; atorvastatin oral [Active]; Albuterol Inhl [Active]; Nitroglycerin SL [Active]; cholecalciferol (vitamin D3) oral [Active]; aspirin Oral [Active]; Plavix Oral [Active]; - PMHx: 06:05 breast cancer; CAD; Diabetes mellitus; Hypertensive disorder; heart stent; bb - Immunization history:: Pfizer x 4. - Social history:: Smoking status: unknown. - Family history:: not pertinent. - Hospitalizations: : No recent hospitalization is reported. Screenin:00 Abuse screen: Denies threats or abuse. Nutritional screening: No deficits noted. mb9 Tuberculosis screening: No symptoms or risk factors identified. Fall Risk No fall in past 12 months (0 pts). Assessment: 05:40 General: Appears in no apparent distress. uncomfortable, Behavior is calm, cooperative, jb4 appropriate for age. Pain: Denies pain. Neuro: Level of Consciousness is awake, alert, obeys commands, Oriented to person, place, time, situation, Reports numbness in right side of head, right arm and right leg. Cardiovascular: Patient's skin is warm and dry. Respiratory: Airway is patent Respiratory effort is even, unlabored, Respiratory pattern is regular, symmetrical. GI: No signs and/or symptoms were reported involving the gastrointestinal system. : No signs and/or symptoms were reported regarding the genitourinary system. EENT: No signs and/or symptoms were reported regarding the EENT system. Derm: Skin is intact, Skin is pink, warm \T\ dry. Musculoskeletal: Circulation, motion, and sensation intact. Range of motion: intact in all extremities. 07:00 Reassessment: Patient appears in no apparent distress at this time. Patient and/or jb4 family updated on plan of care and expected duration. Pain level reassessed. Patient is alert, oriented x 3, equal unlabored respirations, skin warm/dry/pink. Patient states feeling better. Patient states symptoms have improved. 07:00 Reassessment: Received report from ANGELINA Bob. mb9 07:15 General: Appears uncomfortable, Behavior is anxious. Pain: Complains of pain in RLQ mb9 Pain currently is 6 out of 10 on a pain scale. 07:15 Neuro: Rodriguez Agitation-Sedation Scale (RASS): 0 - Alert and Calm Level of mb9 Consciousness is awake, alert, obeys commands, Oriented to person, place, time, situation, Appropriate for age Denies weakness dizziness, numbness. Cardiovascular: Rhythm is regular. Respiratory: Airway is patent Respiratory effort is even, unlabored, Respiratory pattern is regular, symmetrical, Breath sounds are clear bilaterally. GI: Abdomen is round non-distended, Bowel sounds present X 4 quads. Abd is soft Abdomen is tender to palpation in right lower quadrant. : No signs and/or symptoms were reported regarding the genitourinary system. EENT: No signs and/or symptoms were reported regarding the EENT system. Derm: Skin is intact, Skin is pink, warm \T\ dry. Musculoskeletal: Range of motion: intact in all extremities. 08:02 Reassessment: pt taken to MRI via wheelchair. mb9 08:04 General: Appears in no apparent distress. comfortable, Behavior is calm, cooperative, mb9 appropriate for age. Pain: Complains of pain in RLQ Pain currently is 6 out of 10 on a pain scale. Quality of pain is described as sharp, throbbing, Pain began 1 day ago. Neuro: Rodriguez Agitation-Sedation Scale (RASS): 0 - Alert and Calm Level of Consciousness is awake, alert, obeys commands, Oriented to person, place, time, situation, Appropriate for age Denies weakness numbness. 09:18 General: Appears in no apparent distress. comfortable, Behavior is calm, cooperative, mb9 appropriate for age. Neuro: Level of Consciousness is awake, alert, obeys commands, Oriented to person, place, time, situation, Appropriate for age. Cardiovascular: Rhythm is regular. Respiratory: Airway is patent Breath sounds are clear. GI: Abdomen is round non-distended, Reports lower abdominal pain. : No signs and/or symptoms were reported regarding the genitourinary system. Derm: Skin is pink, warm \T\ dry. Vital Signs: 05:45 BP 161 / 94; Pulse 78; Resp 18 S; Temp 98.6(O); Pulse Ox 97% on R/A; Weight 98.43 kg bb (R); Height 5 ft. 2 in. (157.48 cm) (R); Pain 5/10; 08:02 BP 155 / 67; Pulse 66; Resp 18; Pulse Ox 98% on R/A; Pain 6/10; mb9 08:43 BP 122 / 69; Pulse 64; Resp 18; Pulse Ox 98% on R/A; mb9 09:18 BP 122 / 59; Pulse 66; Resp 16; Pulse Ox 96% on R/A; mb9 05:45 Body Mass Index 39.69 (98.43 kg, 157.48 cm) ED Course: 05:39 Patient arrived in ED. jj6 05:40 Abhijeet Scott MD is Attending Physician. rn 05:45 Arm band placed on Patient placed in an exam room, on a stretcher, on pulse oximetry. bb 05:54 Ceferino Conte, ANGELINA is Primary Nurse. jb4 05:54 Inserted saline lock: 18 gauge in left forearm, using aseptic technique. Blood jb4 collected. 06:05 Triage completed. bb 07:00 CT Aorta for Dissection In Process Unspecified. EDMS 07:00 CT Head Brain wo Cont In Process Unspecified. EDMS 07:00 Placed in gown. Bed in low position. Call light in reach. Side rails up X 1. Client mb9 placed on continuous cardiac and pulse oximetry monitoring. NIBP monitoring applied. 07:25 Attending Physician role handed off by Abhijeet Scott MD ms3 07:25 Ramsey Youssef DO is Attending Physician. ms3 07:42 Primary Nurse role handed off by Ceferino Conte, ANGELINA mb9 07:42 Claudia Tran, ANGLEINA is Primary Nurse. mb9 08:28 Brain Wo Cont MRI In Process Unspecified. EDMS 09:07 Maik Salas MD is Referral Physician. ms3 09:19 No provider procedures requiring assistance completed. mb9 09:29 IV discontinued, intact, bleeding controlled, No redness/swelling at site. Pressure mb9 dressing applied. Administered Medications: 06:11 Drug: morphine 4 mg Route: IVP; Infused Over: 4 mins; Site: left forearm; jb4 06:12 Drug: Zofran (Ondansetron) 4 mg Route: IVP; Site: left forearm; jb4 07:22 Drug: Valium (diazepam) 5 mg Route: PO; iw 08:01 Drug: Ativan (LORazepam) 0.5 mg Route: IVP; Site: left wrist; mb9 09:17 Follow up: Response: No adverse reaction mb9 Medication: 09:19 VIS not applicable for this client. mb9 Outcome: 09:08 Discharge ordered by . ms3 09:29 Discharged to home via wheelchair. mb9 09:29 Condition: stable 09:29 Discharge instructions given to patient, Instructed on discharge instructions, follow up and referral plans. Demonstrated understanding of instructions, follow-up care. 09:29 Patient left the ED. mb9 Signatures: Dispatcher [employer] EDBritney Zaragoza RN RN bb Williams, Irene, RN RN iw Abhijeet Scott MD MD rn Bryson, James, RN RN jb4 Ramsey Youssef DO DO ms3 Sherrie Cody j6 Claudia Tran RN RN mb9 Corrections: (The following items were deleted from the chart) 08:43 07:15 General: Appears in no apparent distress. Behavior is anxious, tonya mb9
[2022-01-30 09:34] VITALS: TEMP 98.6
[2022-01-30 09:37] VITALS: BP 122/59; O2SAT 96
--- NOTE | 2022-01-30 14:35 | EKG ---
Test Date: 2022-01-30 Test Time: 05:49:40 Medicine Aide: HALEIGH MEASUREMENT RESULTS: Intervals: Rate: 70 NH: 182 QRSD: 90 QT: 394 QTc: 425 [place]: P: 24 NH: 182 QRS: 1 T: 23 INTERPRETIVE STATEMENTS: Normal sinus rhythm Cannot rule out Anterior infarct, age undetermined Abnormal ECG No previous ECG available for comparison Electronically Signed On 01-30-22 14:33:59 RECREATION CLERK by Alex Barreto
== END 2022-01-30 09:29 | disposition home or self-care (01) ==
LOC: ER 05:36
DX: R10.30 Lower abdominal pain, unspecified (principal); R20.0 Anesthesia of skin; E11.9 Type 2 diabetes mellitus without complications; I10 Essential (primary) hypertension; Z88.0 Allergy status to penicillin; Z88.2 Allergy status to sulfonamides; Z95.818 Presence of other cardiac implants and grafts
CPT/HCPCS: 93005; 85025; 36415; 82565; 81003; 84484; 83690; 80053; 70450; 71275; 74175; 70551; Q9967; J2405; 99284

== ENCOUNTER 2024-12-18 04:24 | Emergency (ER) | payer OTHER ==
[2024-12-18] MEDS ORDERED: DIAZEPAM 5 MG TABLET ONE (05:18)
[2024-12-18 05:35] LABS: Absolute Lymphocytes (CBC) 1.4 K/uL (0.7-4.9); Hematocrit 39.8 % (36.0-45.0); Hemoglobin 13.7 g/dL (12.0-15.0); MCH 29.4 pg (27.0-35.0); MCHC 34.4 g/dL (32.0-36.0); MCV 85.5 fL (80-100); MPV 8.6 fL (7.6-11.3); Nucleated RBC Absolute Count 0.0 (0-0); Nucleated Red Blood Cells % 0.0 % (0-0); RBC Red Blood Cell Count 4.66 M/uL (3.86-4.86); White Blood Count 5.30 thou/uL (4.3-10.9)
[2024-12-18 05:45] LABS: PT Prothrombin Time 12.4 SECONDS (10-13.0); Protime INR 1.1
[2024-12-18 06:09] LABS: ALT/SGPT 31.0 U/L (13-56); AST/SGOT 20.0 U/L (15-37); Albumin 3.6 g/dL (3.4-5.0); Albumin/Globulin Ratio 1.1 (1.1-1.8); Alkaline Phosphatase 73.0 U/L (45-117); Anion Gap 8.8 mEq/L (5.0-15.0); BUN Blood Urea Nitrogen 18.0 mg/dL (7-18); Bilirubin Indirect, Calculated 0.5 mg/dL (0.2-0.8); Globulin 3.4 g/dL (2.3-3.5); Glucose Level 96.0 mg/dL (74-106); Magnesium 2.0 mg/dL (1.6-2.4); NT PRO-BNP 135.0 pg/mL (<125); Potassium 3.8 mEq/L (3.5-5.1); Thyroid Stimulating Hormone 1.92 uIU/mL (0.358-3.740); Troponin High Sensitivity 4.8 pg/mL (<58.9)
--- NOTE | 2024-12-18 07:34 | RAD REPORT ---
EXAM: 1 VIEW(S) XRAY OF THE CHEST 12/18/2024 05: 3:00 AM COMPARISON: CT chest of 01/30/2022 report. CLINICAL HISTORY: CHEST PAIN FINDINGS: LUNGS AND PLEURA: No focal pulmonary opacity. No pulmonary edema. No pleural effusion. No pneumothorax. HEART AND MEDIASTINUM: No acute abnormality of the cardiac and mediastinal silhouettes. BONES AND SOFT TISSUES: Surgical clips project over the right chest. No acute osseous abnormality. IMPRESSION: 1. No acute cardiopulmonary process. Electronically signed by: Stanley Tee MD 12/18/2024 07:05 AM CDT RP Due to temporary technical issues with the [employer] reporting system, reports are being jaspal d by the in-house radiologist without review as a courtesy to ensure prompt reporting. The interpreting radiologist is fully responsible for the content of the report. Transcribed Date/Time: 12/18/2024 7:34 AM
--- NOTE | 2024-12-18 08:46 | ER ---
Nurse's Notes [facility] Name: Alondra Kc Age: 59 yrs Sex: Female : 1965 Arrival Date: 12/18/2024 Time: 04:24 Bed 20 Private MD: Diagnosis: Chest pain, unspecified;Essential (primary) hypertension Presentation: 12/18 04:27 Chief complaint: Patient states: HIGH BLOOD PRESSURE SINCE YESTERDAY, THIS MORNING LIKE ha1 AN HOUR AGO, STARTED TO FEEL CHEST PAIN. 04:27 Coronavirus screen: Client denies travel out of the [place] in the last 14 days. Ebola ha1 Screen: No symptoms or risks identified at this time. Initial Sepsis Screen: Does the patient meet any 2 criteria? No. Patient's initial sepsis screen is negative. Does the patient have a suspected source of infection? No. Patient's initial sepsis screen is negative. Risk Assessment: Do you want to hurt yourself or someone else? Patient reports no desire to harm self or others. Onset of symptoms was December 18, 2024. 04:27 Method Of Arrival: Ambulatory ha1 04:27 Acuity: ANDREIA 2 ha1 Triage Assessment: 04:46 General: Appears uncomfortable, Behavior is calm, cooperative. Pain: Complains of pain ha1 in chest Pain currently is 6 out of 10 on a pain scale. Neuro: Level of Consciousness is awake, alert, obeys commands, Oriented to person, place, time, situation. Cardiovascular: Capillary refill < 3 seconds Patient's skin is warm and dry. Respiratory: Airway is patent Respiratory effort is even, unlabored, Respiratory pattern is regular, symmetrical. Historical: - Allergies: 04:46 PENICILLINS; ha1 04:46 Sulfa (Sulfonamide Antibiotics); ha1 - Home Meds: 04:46 valsartan oral [Active]; nebivolol oral [Active]; Metformin Oral [Active]; Buspirone ha1 Oral [Active]; - PMHx: 04:46 breast cancer; CAD; diabetes mellitus; HEART STENT; Hypertensive disorder; ha1 - Immunization history:: Adult Immunizations not up to date. - Infectious Disease History:: Denies. - Social history:: Smoking status: Patient denies any tobacco usage or history of. - Family history:: not pertinent. Screenin:09 [facility] ED Fall Risk Assessment (Adult) History of falling in the last 3 months, tb4 including since admission No falls in past 3 months (0 pts) Confusion or Disorientation No (0 pts) Intoxicated or Sedated No (0 pts) Impaired Gait No (0 pts) Mobility Assist Device Used No (0 pt) Altered Elimination No (0 pt) Score/Fall Risk Level 0 - 2 = Low Risk Maintained a safe environment. Abuse screen: Denies threats or abuse. Denies injuries from another. Nutritional screening: No deficits noted. Tuberculosis screening: No symptoms or risk factors identified. Assessment: 06:29 Pain: Pain does not radiate. Pain began 2-3 days ago. tb4 07:15 Reassessment: Patient and/or family updated on plan of care and expected duration. Pain ar8 level reassessed. Patient is alert, oriented x 3, equal unlabored respirations, skin warm/dry/pink. Patient states feeling better. Patient states symptoms have improved. 07:59 Reassessment: Patient denies pain at this time. ar8 Vital Signs: 04:27 BP 174 / 98; Pulse 83; Resp 17 S; Temp 98.3; Pulse Ox 100% on R/A; Weight 81.19 kg; ha1 Height 5 ft. 3 in. ; Pain 6/10; 04:46 BP 176 / 105; Pulse 79; Resp 20; Pulse Ox 99% on R/A; Pain 0/10; tb4 05:08 BP 158 / 94; Pulse 79; Resp 20; Pulse Ox 98% on R/A; Pain 0/10; tb4 06:00 BP 147 / 85; Pulse 73; Resp 18; Pulse Ox 96% on R/A; Pain 0/10; tb4 07:30 BP 138 / 85; Pulse 68; Resp 18 S; Pulse Ox 96% on R/A; ar8 08:15 BP 164 / 89; Pulse 73; Resp 20; Pulse Ox 97% on R/A; Pain 0/10; ar8 08:45 BP 144 / 88; Pulse 71; Resp 17; Pulse Ox 97% on R/A; Pain 0/10; ar8 04:27 Body Mass Index 31.71 (81.19 kg, 160.02 cm) ha1 04:27 Pain Scale: Adult ha1 04:46 Pain Scale: Adult tb4 05:08 Pain Scale: Adult tb4 06:00 Pain Scale: Adult tb4 08:15 Pain Scale: Adult ar8 08:45 Pain Scale: Adult ar8 ED Course: 04:27 Patient arrived in ED. im 04:46 Triage completed. ha1 04:48 Adalberto Ellison MD is Attending Physician. sp4 05:09 Patient has correct armband on for positive identification. Bed in low position. Call tb4 light in reach. Side rails up X 1. Adult w/ patient. Client placed on continuous cardiac and pulse oximetry monitoring. NIBP monitoring applied. quality assurance monitor on. Pulse ox on. Door closed. Lights dimmed. Pillow given. 05:09 No provider procedures requiring assistance completed. EKG done, by ED staff, reviewed tb4 by Adalberto Ellison MD. Patient maintains SpO2 saturation greater than 95% on room air. 05:30 Inserted saline lock: 22 gauge in left forearm, using aseptic technique. Blood oe collected. Flushed with 10 mL NS. 05:31 T4 Free Sent. oe 05:31 TSH Sent. oe 05:31 Basic Metabolic Panel Sent. oe 05:31 CBC with Diff Sent. oe 05:31 LFT's Sent. oe 05:31 Magnesium Sent. oe 05:31 NT PRO-BNP Sent. oe 05:32 PT-INR Sent. oe 05:32 Troponin HS Sent. oe 05:35 XRAY Chest (1 view) In Process Unspecified. EDMS 06:29 Arm band placed on right wrist. tb4 07:04 Attending Physician role handed off by Adalberto Ellison MD rn 07:04 Abhijeet Scott MD is Attending Physician. rn 07:36 Dinh Castro, ANGELINA is Primary Nurse. ar8 07:59 Repeat lab(s) drawn. by tx, sent to lab. ar8 08:52 IV discontinued, intact, bleeding controlled, No redness/swelling at site. Pressure ar8 dressing applied. Administered Medications: 05:21 Drug: Diazepam PO 5 mg PO once Route: PO; tb4 06:25 Follow up: Response: No adverse reaction; Anxiety decreased; RASS: Alert and Calm (0) tb4 Medication: 04:46 VIS not applicable for this client. tb4 Outcome: 08:45 Discharge ordered by . rn 08:52 Discharged to home ambulatory, ar8 08:52 Condition: stable 08:52 Discharge instructions given to patient, significant other, Instructed on discharge instructions, follow up and referral plans. Demonstrated understanding of instructions, follow-up care, 08:53 Patient left the ED. ar8 Signatures: Dispatcher [employer] EDMS Abhijeet Scott MD MD rn Espinosa, Orlando oe Ayala, Heidy RN RN ha1 Adalberto Ellison MD MD sp4 Yuly Lu Terri RN RN tb4 Dinh Castro RN RN ar8
--- NOTE | 2024-12-18 08:46 | EDPHYS ---
Physician Documentation [facility] Name: Alondra Kc Age: 59 yrs Sex: Female : 1965 Arrival Date: 12/18/2024 Time: 04:24 Bed 20 Private MD: ED Physician Abhijeet Scott HPI: 12/18 04:48 This 59 yrs old Female presents to ER via Ambulatory with complaints of Chest sp4 Pain, High Blood Pressure. 05:14 59-year-old female with past medical history of coronary artery disease history of sp4 prior stent, patient reports that yesterday afternoon she developed elevated blood pressure over of 177/99. Patient then developed generalized chest discomfort this morning associated with persistently elevated blood pressure. She reports anxiety. Reports myocardial infarction in 2007 with stent placed in 2007. Currently on aspirin 81 mg daily, Plavix 75 mg daily, Crestor, bupropion, Zepbound, and Bystolic 20 mg daily, valsartan HCTZ 1 6012.5. Protonix daily Phenergan as needed, magnesium citrate, also Vilazodone (brand name Viibryd) p.o. daily. Additional medications include Linzess 20 mg p.o. daily, metformin XR 500 mg daily, Claritin as needed. History of lung cancer, history of soft tissue sarcoma, history of right axillary lymph node dissection, history of prior chemoradiation, history of anxiety and coronary artery disease.. Historical: - Allergies: 04:46 PENICILLINS; ha1 04:46 Sulfa (Sulfonamide Antibiotics); ha1 - Home Meds: 04:46 valsartan oral [Active]; nebivolol oral [Active]; Metformin Oral [Active]; Buspirone ha1 Oral [Active]; - PMHx: 04:46 breast cancer; CAD; diabetes mellitus; HEART STENT; Hypertensive disorder; ha1 - Immunization history:: Adult Immunizations not up to date. - Infectious Disease History:: Denies. - Social history:: Smoking status: Patient denies any tobacco usage or history of. - Family history:: not pertinent. ROS: 05:20 Constitutional: Negative for fever, chills, and weight loss, positive for elevated sp4 blood pressure positive for chest discomfort positive for anxiety 05:20 All other systems are negative, Exam: 05:20 Constitutional: This is a well developed, well nourished patient who is awake, alert, sp4 and in no acute distress. Head/Face: Normocephalic, atraumatic. Eyes: Pupils equal round and reactive to light, extra-ocular motions intact. Lids and lashes normal. Conjunctiva and sclera are not injected. Cornea within normal limits. Periorbital areas with no swelling, redness, or edema. ENT: Nares patent. No nasal discharge, no septal abnormalities noted. Tympanic membranes are normal and external auditory canals are clear. Oropharynx with no redness, swelling, or masses, exudates, or evidence of obstruction, uvula midline. Mucous membranes moist. Neck: Trachea midline, no thyromegaly or masses palpated, and no cervical lymphadenopathy. Supple, full range of motion without nuchal rigidity, or vertebral point tenderness. Chest/axilla: Normal chest wall appearance and motion. Nontender with no deformity. No lesions are appreciated. Cardiovascular: Regular rate and rhythm with a normal S1 and S2. No gallops, murmurs, or rubs. No pulse deficits. Respiratory: Lungs have equal breath sounds bilaterally, clear to auscultation and percussion. No rales, rhonchi or wheezes noted. No increased work of breathing, no retractions or nasal flaring. Abdomen/GI: Soft, with normal bowel sounds. No distension or tympany. No guarding or rebound. No evidence of tenderness throughout. Back: No spinal tenderness. No costovertebral tenderness. Skin: Warm, dry with normal turgor. Normal color with no rashes, no lesions, and no evidence of cellulitis. MS/ Extremity: Pulses equal, no cyanosis. Neurovascular intact. Full, normal range of motion. Neuro: Awake and alert, GCS 15, oriented to person, place, time, and situation. Cranial nerves II-XII grossly intact. Motor strength 5/5 in all extremities. Sensory grossly intact. Psych: Awake, alert, with orientation to person, place and time. Behavior, mood, and affect are within normal limits 05:20 ECG was reviewed by the Attending Physician. EKG reveals sinus rhythm rate 78 and also normal sinus rhythm EKG time 0 446. Vital Signs: 04:27 BP 174 / 98; Pulse 83; Resp 17 S; Temp 98.3; Pulse Ox 100% on R/A; Weight 81.19 kg; ha1 Height 5 ft. 3 in. ; Pain 6/10; 04:46 BP 176 / 105; Pulse 79; Resp 20; Pulse Ox 99% on R/A; Pain 0/10; tb4 05:08 BP 158 / 94; Pulse 79; Resp 20; Pulse Ox 98% on R/A; Pain 0/10; tb4 06:00 BP 147 / 85; Pulse 73; Resp 18; Pulse Ox 96% on R/A; Pain 0/10; tb4 07:30 BP 138 / 85; Pulse 68; Resp 18 S; Pulse Ox 96% on R/A; ar8 08:15 BP 164 / 89; Pulse 73; Resp 20; Pulse Ox 97% on R/A; Pain 0/10; ar8 08:45 BP 144 / 88; Pulse 71; Resp 17; Pulse Ox 97% on R/A; Pain 0/10; ar8 04:27 Body Mass Index 31.71 (81.19 kg, 160.02 cm) ha1 04:27 Pain Scale: Adult ha1 04:46 Pain Scale: Adult tb4 05:08 Pain Scale: Adult tb4 06:00 Pain Scale: Adult tb4 08:15 Pain Scale: Adult ar8 08:45 Pain Scale: Adult ar8 MDM: 04:48 Medical Screening Exam initiated sp4 05:22 Differential diagnosis: acute pericarditis, anxiety, coronary artery disease chest wall sp4 pain, esophagitis, gastritis. HEART Score: History: Slightly Suspicious (0), ECG: Normal (0), Age: > 45 and < 65 years (1), Risk Factors: > or = 3 Risk factors for atherosclerotic disease (2), [Hypercholesterolemia] [Hypertension] [DM] Troponin: < or = 1 x Normal Limit (0), Total Score = 3. Data reviewed: vital signs, nurses notes, lab test result(s), EKG, radiologic studies, plain films. 06:56 ED course: Initial lab reports are normal. Troponin is normal. Patient blood pressure sp4 remains elevated.. ED course: Will recheck troponin at 8 AM.. 07:15 Transition of care: Care assumed from Adalberto Ellison MD. rn 08:44 Special discussion: Based on the patient's history, exam, and Dx evaluation, there is rn no indication for emergent intervention or inpatient Tx. It is understood by the patient/guardian that if the Sx's persist or worsen they need to return immediately for re-evaluation. I discussed with the patient/guardian in detail that at this point there is no indication for admission to the hospital. It is understood, however, that if the symptoms persist or worsen the patient needs to return immediately for re-evaluation. Based on the history and exam findings, there is no indication for further emergent testing or inpatient evaluation. I discussed with the patient/guardian the need to see the industrial x ray operator for further evaluation of the symptoms. ED course: Repeat troponin negative. Plan per Dr. Ellison was to DC home if repeat troponin negative. Patient agrees with plan. Has cardiology appointment set for this next week for echo and stress test. I have personally reviewed all of the results, including but not limited to blood tests and imaging deemed necessary to safely discharge this patient at this time. All results given to and printed out for patient. I personally went over all the results with the patient and answered all questions. Patient will follow-up with PCP and or specialist as discussed. Return precautions given and understood.. 08:46 Counseling: I had a detailed discussion with the patient and/or guardian regarding the rn presence of at least one elevated blood pressure reading (>120/80) during this emergency department visit. Special discussion: I have referred the patient to see his PCP for further evaluation of high blood pressure. 12/18 04:48 Order name: Basic Metabolic Panel; Complete Time: 06:48 sp4 12/18 04:48 Order name: CBC with Diff; Complete Time: 06:48 sp4 12/18 04:48 Order name: LFT's; Complete Time: 06:48 sp4 12/18 04:48 Order name: Magnesium; Complete Time: 06:48 sp4 12/18 04:48 Order name: NT PRO-BNP; Complete Time: 06:48 sp4 12/18 04:48 Order name: PT-INR; Complete Time: 06:48 sp4 12/18 04:48 Order name: Troponin HS; Complete Time: 06:48 sp4 12/18 05:12 Order name: TSH; Complete Time: 06:48 sp4 12/18 05:12 Order name: T4 Free; Complete Time: 06:48 sp4 12/18 06:57 Order name: Troponin High Sensitivity: Please collect at 8 AM; Complete Time: 08:33 sp4 12/18 04:48 Order name: XRAY Chest (1 view); Complete Time: 08:07 sp4 12/18 04:48 Order name: Cardiac monitoring; Complete Time: 04:55 sp4 12/18 04:48 Order name: EKG - Nurse/Tech; Complete Time: 04:55 sp4 12/18 04:48 Order name: IV Saline Lock; Complete Time: 05:31 sp4 12/18 04:48 Order name: Labs collected and sent; Complete Time: 05:31 sp4 12/18 04:48 Order name: O2 Per Protocol; Complete Time: 04:55 sp4 12/18 04:48 Order name: O2 Sat Monitoring; Complete Time: :55 sp4 EC:46 Rate is 78 beats/min. Rhythm is regular, Normal Sinus Rhythm. QRS [place] is Normal. [place] sp4 interval is normal. QRS interval is normal. QT interval is normal. No Q waves. T waves are Normal. Clinical impression: No evidence of ischemia. Interpreted by me. Reviewed by me. Administered Medications: 05:21 Drug: Diazepam PO 5 mg PO once Route: PO; tb4 06:25 Follow up: Response: No adverse reaction; Anxiety decreased; RASS: Alert and Calm (0) tb4 Disposition Summary: 12/18/24 08:45 Discharge Ordered Notes: Location: Home rn Problem: new rn Symptoms: have improved rn Condition: Stable rn Diagnosis - Chest pain, unspecified rn - Essential (primary) hypertension rn Followup: rn - With: Private Physician - When: As needed - Reason: Recheck today's complaints, Re-evaluation by your physician Discharge Instructions: - Discharge Summary Sheet rn - Nonspecific Chest Pain, Adult rn - Hypertension, Adult rn - Managing Your Hypertension rn Forms: - Medication Reconciliation Form rn - Antibiotic pharmacy graduate intern - Prescription Opioid Use rn - Patient Portal Instructions rn - Leadership Thank You Letter rn Signatures: Dispatcher [employer] EDAbhijeet Brar MD MD rn Ayala, Heidy RN RN [email or web address] Adalberto Ellison MD MD sp4 Tia Garcia RN RN tb4 Corrections: (The following items were deleted from the chart) 04:49 04:49 BASIC METABOLIC PANEL+C.LAB.BRZ ordered. EDMO EDMO 04:49 04:49 CBC+H.LAB.BRZ ordered. EDMS EDMS 04:49 04:49 HEPATIC FUNCTION+C.LAB.BRZ ordered. EDMS EDMS 04:49 04:49 MAGNESIUM+C.LAB.BRZ ordered. EDMS EDMS 04:49 04:49 PROBNP+C.LAB.BRZ ordered. EDMS EDMS 04:49 04:49 PROTIME (+INR)+COAG.LAB.BRZ ordered. EDMS EDMS 04:49 04:49 Troponin High Sensitivity+C.LAB.BRZ ordered. EDMS EDMS 04:49 04:49 Chest Single View+RAD.RAD.BRZ ordered. EDMS EDMS 06:57 06:57 Troponin High Sensitivity+C.LAB.BRZ ordered. EDMS EDMS
[2024-12-18 08:57] VITALS: TEMP 98.3
[2024-12-18 09:04] VITALS: O2SAT 97
[2024-12-18 09:05] VITALS: BP 144/88
== END 2024-12-18 08:53 | disposition home or self-care (01) ==
LOC: ER 04:24
DX: R07.9 Chest pain, unspecified (principal); I10 Essential (primary) hypertension; Z95.818 Presence of other cardiac implants and grafts
CPT/HCPCS: 36415; 71045; 80048; 80076; 83735; 83880; 84439; 84443; 84484; 85025; 85610; 93005; 99285